=== PATIENT | female | born 1955 | race Caucasian/White ===

== ENCOUNTER → 2019-04-16 | Outpatient (CLI) | payer MEDICARE, MEDICAID ==
[2015-09-06 11:00] VITALS: BP 136/76
[~2019-04-16] MED LIST: SOLI10TA2 PO
--- NOTE | 2019-04-16 16:16 | KCIC ---
EXAM: Pelvic ultrasound. HISTORY: Postmenopausal bleeding. COMPARISON: None. FINDINGS: Sonographic evaluation of the pelvis was performed transabdominally. The patient declined transvaginal assessment. If they have not been resected, the uterus and ovaries are obscured by bowel gas and body habitus. No mass or clear free fluid is appreciated. IMPRESSION: 1. Limited assessment. The uterus and ovaries are obscured if they are not surgically absent. Recommend ongoing follow-up of postmenopausal bleeding. Electronically signed by: Sulma Johnson MD (04/16/2019 4:13 PM) [facility]
== END | disposition home or self-care (01) ==
LOC: KCIC US 14:41
PROVIDERS: ATTEND Family Medicine
DX: N95.0 Postmenopausal bleeding (principal)
CPT/HCPCS: 76857

== ENCOUNTER → 2019-09-22 | Outpatient (CLI) | payer MEDICARE, MEDICAID ==
[2015-09-06 11:00] VITALS: BP 136/76
[~2019-09-22] MED LIST changes: +DOXY100T PO; +FURO40TA4 PO; +IRBE150T21 PO; +OXYB10TA26 PO
--- NOTE | 2019-09-22 08:02 | RAD ---
Bilateral lower extremity arterial ultrasound History:Nonhealing bilateral lower extremity wounds Findings: Multiple grayscale, color, and duplex spectral analysis sonographic images were acquired of the lower extremity arteries bilaterally. There are no previous similar exams. Triphasic flow is seen at the common femoral arterial and proximal to mid femoral arterial levels. Triphasic flow is seen at other sites were flow is noted. Velocities in cm/sec: RIGHT Common femoral artery 169 Profunda femoris artery 165 Proximal SFA 189 Mid SFA 143 Distal SFA not visualized Popliteal artery 98 Anterior tibial artery not visualized Dorsalis pedis artery 55 Posterior tibial artery not visualized Peroneal artery not visualized LEFT: Common femoral artery 122 Profunda femoris artery 130 Proximal SFA 174 Mid SFA 172 Distal SFA not visualized Popliteal artery 80 Anterior tibial artery 111 Dorsalis pedis artery not visualized Posterior tibial artery not visualized Peroneal artery not visualized Impression: Flows not seen within bilateral distal lower extremity arteries at multiple sites of calf levels. Distal superficial femoral artery is not identified to have flow. Findings are concerning for occlusion at these sites. Electronically signed by: Guillaume Manzano MD (09/22/2019 7:59 AM) [id number]
== END | disposition home or self-care (01) ==
LOC: US 06:41
PROVIDERS: ATTEND Emergency Medicine Undersea and Hyperbaric Medicine
DX: S81.802A Unspecified open wound, left lower leg, initial encounter (principal); S81.801A Unspecified open wound, right lower leg, initial encounter; I70.213 Atherosclerosis of native arteries of extremities with intermittent claudication, bilateral legs; I87.2 Venous insufficiency (chronic) (peripheral); M17.10 Unilateral primary osteoarthritis, unspecified knee; I15.8 Other secondary hypertension; X58.XXXA Exposure to other specified factors, initial encounter; Y93.89 Activity, other specified; Y92.89 Other specified places as the place of occurrence of the external cause; Y99.8 Other external cause status
CPT/HCPCS: 93925

== ENCOUNTER 2019-10-05 08:27 | Outpatient (CLI) | payer MEDICARE, MEDICAID ==
[~2019-10-05] VITALS: Ht 167.6 cm; Wt 201.8 kg
[2019-10-05] VITALS (10 sets, daily range): BP systolic 104–148; BP diastolic 52–88
[2019-10-05 08:59] LABS: BASO # 0.1 x10^3/uL (0.0-0.2); BASO % 1 % (0-3); EOS # 0.2 x10^3/uL (0.0-0.7); EOS % 3 % (0-3); HEMATOCRIT 48.9 % (36.0-47.0); LYMPH # 1.3 x10^3/uL (1.0-4.8); LYMPH % 18 % (24-48); MEAN CORPUSCULAR HEMOGLOBIN 28 pg (25-35); MEAN CORPUSCULAR HGB CONC 33 g/dL (31-37); MEAN CORPUSCULAR VOLUME 85 fL (79-100); MONO # 0.5 x10^3/uL (0.0-1.1); MONO % 7 % (0-9); NEUT # 4.9 x10^3/uL (1.8-7.7); NEUT % 70 % (31-73); PLATELET COUNT 223 x10^3/uL (140-400); RED BLOOD COUNT 5.77 x10^6/uL (3.50-5.40); RED CELL DISTRIBUTION WIDTH 14.3 % (11.5-14.5)
[2019-10-05 09:06] LABS: CALCIUM 9.2 mg/dL (8.5-10.1); CREATININE 0.9 mg/dL (0.6-1.0); GFR 62.6; POTASSIUM 4.1 mmol/L (3.5-5.1)
[2019-10-05] MEDS ORDERED: IODIXANOL 320 MG/ML 100 ML VIAL. ONE ×2 (09:50→11:49)
[2019-10-05] MEDS ORDERED: LIDOCAINE WITH 8.4% SOD BICARB 3 ML DISP.SYRIN. ONE (09:50)
[2019-10-05] MEDS ORDERED: HEPARIN for ARTERIAL LINE 1,500 ML ONE (09:50)
[2019-10-05] MEDS ORDERED: MIDAZOLAM HCL/PF 5 MG/5 ML VIAL. ONE (10:05)
[2019-10-05] MEDS ORDERED: fentaNYL PF VIAL 100 MCG/2 ML VIAL ONE (10:05)
[2019-10-05] MEDS ORDERED: VERAPAMIL 5 MG/2 ML VIAL. ONE (10:11)
[2019-10-05] MEDS ORDERED: HEPARIN for IV BOLUS 10,000 UNIT/10 ML VIAL. ONE (10:11)
[2019-10-05] MEDS ORDERED: NITROGLYCERIN 200 MCG/2 ML SYRINGE FOR CATH/VASC LAB. ONE (10:11)
[2019-10-05] MEDS ORDERED: HEPARIN for IV BOLUS 10,000 UNIT/10 ML VIAL. IART ONE (11:00)
[2019-10-05] MEDS ORDERED: IODIXANOL 320 MG/ML 100 ML VIAL. IART ONE (11:00)
[2019-10-05] MEDS ORDERED: fentaNYL PF VIAL 100 MCG/2 ML VIAL IV ONE (11:00)
[2019-10-05] MEDS ORDERED: MIDAZOLAM HCL/PF 5 MG/5 ML VIAL. IV ONE (11:00)
[2019-10-05] MEDS ORDERED: VERAPAMIL 5 MG/2 ML VIAL. IART ONE (11:00)
[2019-10-05] MEDS ORDERED: LIDOCAINE WITH 8.4% SOD BICARB 3 ML DISP.SYRIN. IJ ONE (11:00)
[2019-10-05] MEDS ORDERED: NITROGLYCERIN 200 MCG/2 ML SYRINGE FOR CATH/VASC LAB. IART ONE (11:00)
[2019-10-05] MEDS ORDERED: IBUPROFEN 400 MG TABLET. PO PRN (12:45)
--- NOTE | 2019-10-05 14:42 | NUR ---
Discharge Note: ZI SIMON Discharge instructions and discharge home medications reviewed with Patient and a copy given. All questions have been answered and understanding verbalized. The following instructions and handouts were given: radial site care and adult moderate sedation Discontinued lines and drains: Peripheral IV intact. Patient discharged to Home or Self Care withFamily Membera Wheelchair
--- NOTE | 2019-10-05 16:31 | RAD ---
10/05/2019 1. Abdominal aortogram 2. Pelvic angiography 3. Bilateral lower extremity angiography INDICATION: Bilateral lower extremity wounds. Edema. Evaluate for arterial insufficiency Discussion: The procedure was explained in its entirety to the patient or the patients designated premium service representative by a member of the treatment team, including a discussion of the risks, benefits and commonly accepted alternatives to the procedure, as well as the expected consequences of no therapy whatsoever. Discussion of the risks included, but was not limited to, those that are most frequent and those that are rare but possibly severe or life-threatening, as well as the possibility of unforeseen complications. All elements of maximal sterile barrier technique including the use of a cap, mask, sterile gown, sterile gloves, large sterile sheet, appropriate hand hygiene, and 2% chlorhexidine for cutaneous antisepsis (or acceptable alternative antiseptic per current guidelines) were followed for this procedure. Barbeau test was performed prior to right radial access,, dizziness demonstrating adequate collateral flow to the pulmonary arch. The right wrist was prepped and draped using sterile barrier technique. 1% lidocaine was administered for local anesthesia. Ultrasound evaluation demonstrates right radial artery to be patent. The artery was accessed using micropuncture technique, under direct ultrasound guidance. Reference ultrasound images were saved the medical record. A 6 Georgian Low Profile sheath was placed. The catheter was advanced into the abdominal aorta. Abdominal aortogram was performed demonstrating no aneurysm, evidence of dissection, flow-limiting stenosis. Pelvic angiography was performed yielding similar results. Catheter was manipulated into the right common femoral artery. Right lower extremity angiography was performed demonstrating no femoropopliteal or significant tibial vessel disease. Catheter was positioned in the left common femoral artery and left lower extremity angiography performed again demonstrating no significant femoropopliteal or tibial vessel disease. Sheath was removed and the TR been placed per protocol. No immediate complications were identified. Total fluoroscopy time: 19.8 min Dose area product: 538 Gycm2 The procedures performed under conscious sedation including continuous cardiopulmonary monitoring via dedicated sedation nurse. [id number] sedation time: 90 minutes Impression: No angiographic evidence of hemodynamically significant aortoiliac, femoral popliteal, tibial vessel disease
== END 2019-10-05 14:44 | disposition home or self-care (01) ==
LOC: INTRAD 08:27
PROVIDERS: ATTEND Emergency Medicine Undersea and Hyperbaric Medicine
DX: I70.213 Atherosclerosis of native arteries of extremities with intermittent claudication, bilateral legs (principal); Z79.01 Long term (current) use of anticoagulants; Z79.899 Other long term (current) drug therapy
CPT/HCPCS: 36246; 36415; 75625; 75716; 76937; 80048; 85025; 85610; 85730; 99152; 99153; C1713; C1769; C1892; J1644; J2250; J3010; J3490; Q9967

== ENCOUNTER 2020-12-14 08:26 | Emergency (ER) | payer MEDICARE, MEDICAID ==
[~2020-12-14] VITALS: Ht 167.6 cm; Wt 181.8 kg
[2020-12-14 08:39] VITALS: BP 144/66
[2020-12-14] MEDS ORDERED: HYDROcodone/APAP 5/325MG 1 TAB TABLET PO ONE (09:30)
--- NOTE | 2020-12-14 10:33 | RAD ---
XR SHOULDER_LEFT 2+ VIEWS, XR LEFT CLAVICLE, XR CHEST 1V Clinical Indication: Reason: FELL, LEFT SIDE CHEST, SHOULDER PAIN / Spl. Instructions: / History: Comparison: AP chest September 28, 2019. Findings: Moderate arthropathy of the left shoulder. No acute fracture or dislocation is seen. No acute fracture of the clavicle is identified. There is sternoclavicular and acromioclavicular arth ropathy. There is a 11 mm well-corticated body superior to the acromion, may be a joint body. The cardiomediastinal silhouette is normal there are low lung volumes.. Cephalized pulmonary vessels. Bibasilar airspace opacities. There is no pneumothorax. No pleural effusion is appreciated. There is similar arthropathy of the right shoulder. Degenerative endplate spurring of the thoracic spine. IMPRESSION: 1. No acute fracture or dislocation of the shoulder or clavicle. 2. Low lung volumes. Bibasilar airspace opacities. Question mild pulmonary vascular congestion. Electronically signed by: Aftab Pickard MD (12/14/2020 10:31 AM) [id number]
--- NOTE | 2020-12-14 10:58 | PHYS DOC ---
Past Medical History Past Medical History: Hypertension Additional Past Medical Histor: morbid obesity, overactive bladder Past Surgical History: Cholecystectomy Smoking Status: Never Smoker Alcohol Use: None Drug Use: None General Adult EDM: Chief Complaint: SHOULDER INJURY HPI: HPI: Patient is a 65 year old female who present to ER for evaluation of left shoulder pain after she fell in her garden today. Patient said she was walking and tripped on her feet, fell down on her left shoulder hit the ground. Patient denies any head or neck injury, denies any back pain lower extremity pain. Patient denies any hip pain, no numbness or weakness in her left upper extr emity. Patient is complaining of pain in her left inner shoulder area, and left distal clavicle area. Patient is not on any blood thinner. Review of Systems: Review of Systems: Constitutional: Denies fever or chills. [] Eyes: Denies change in visual acuity. [] HENT: Denies nasal congestion or sore throat. [] Respiratory: Denies cough or shortness of breath. [] Cardiovascular: Denies chest pain or edema. [] GI: Denies abdominal pain, nausea, vomiting, bloody stools or diarrhea. [] : Denies dysuria. [] Musculoskeletal: Positive for left shoulder pain. Integument: Denies rash. Positive for left shoulder contusion. Neurologic: Denies any headache, no numbness Endocrine: Denies polyuria or polydipsia. [] Lymphatic: Denies swollen glands. [] Psychiatric: Denies depression or anxiety. [] Heart Score: C/O Chest Pain: N/A Risk Factors: Risk Factors: DM, Current or recent (<one month) smoker, HTN, HLP, family history of CAD, obesity. Risk Scores: Score 0 - 3: 2.5% MACE over next 6 weeks - Discharge Home Score 4 - 6: 20.3% MACE over next 6 weeks - Admit for Clinical Observation Score 7 - 10: 72.7% MACE over next 6 weeks - Early Invasive Strategies Current Medications: Current Medications Medications (Trade) Dose Ordered Sig/Esperanza Start Time Stop Time Status Last Admin Dose Admin Acetaminophen/ Hydrocodone Bitart (Lortab 5/325) 2 tab 1X ONCE 12/14/20 09:30 12/14/20 09:31 DC 12/14/20 09:33 2 TAB Allergies: Allergies: Allergies Coded Allergies Type Severity Reaction Last Updated Verified No Known Drug Allergies 12/14/20 No Physical Exam: PE: Constitutional: Well developed, well nourished, no acute distress, non-toxic appearance. [] HENT: Normocephalic, atraumatic, bilateral external ears normal, oropharynx moist, no oral exudates, nose normal. [] Eyes: PERRLA, EOMI, conjunctiva normal, no discharge. [] Neck: Normal range of motion, no tenderness, supple, no stridor. [] Cardiovascular:Heart rate regular rhythm, no murmur [] Lungs & Thorax: Bilateral breath sounds clear to auscultation [] Abdomen: Bowel sounds normal, soft, no tenderness, no masses, no pulsatile primo s. [] Skin: Warm, dry, no erythema, no rash. [] Back: No tenderness, no CVA tenderness. [] Extremities: Left shoulder tender to palpation at the AC joint area, no deformity noted, there is skin contusion at the left distal clavicle area, no crepitus. There is full range of motion of the left shoulder. Neurologic: Alert and oriented X 3, normal motor function, normal sensory function, no focal deficits noted. [] Psychologic: Affect normal, judgement normal, mood normal. [] Current Patient Data: Vital Signs: Vital Signs Date Time Temp Pulse Resp B/P (MAP) Pulse Ox O2 Delivery O2 Flow Rate FiO2 12/14/20 08:39 97.7 91 28 144/66 (79) 88 Room Air 97.7 EKG: EKG: [] Radiology/Procedures: Radiology/Procedures: [][facility] [address] [place], [place] [id number] IMAGING REPORT Signed PATIENT: ZI SIMON RACCOUNT: [id number] : 1955 LOCATION: ER AGE: 65 SEX: F EXAM STATUS: REG ER ORD. PHYSICIAN: NELLY SPENCER DO REASON: FELL, LEFT SIDE CHEST, SHOULDER PAIN PROCEDURE: CHEST AP ONLY XR SHOULDER_LEFT 2+ VIEWS, XR LEFT CLAVICLE, XR CHEST 1V Clinical Indication: Reason: FELL, LEFT SIDE CHEST, SHOULDER PAIN / Spl. Instructions: / History: Comparison: AP chest September 28, 2019. Findings: Moderate arthropathy of the left shoulder. No acute fracture or dislocation is seen. No acute fracture of the clavicle is identified. There is sternoclavicular and acromioclavicular arthropathy. There is a 11 mm well-corticated body superior to the acromion, may be a joint body. The cardiomediastinal silhouette is normal there are low lung volumes.. Cephalized pulmonary vessels. Bibasilar airspace opacities. There is no pneumothorax. No pleural effusion is appreciated. There is similar arthropathy of the right shoulder. Degenerative endplate spurring of the thoracic spine. IMPRESSION: 1. No acute fracture or dislocation of the shoulder or clavicle. 2. Low lung volumes. Bibasilar airspace opacities. Question mild pulmonary vascular congestion. Electronically signed by: Aftab Pickard MD (12/14/2020 10:31 AM) [id number] DICTATED and SIGNED BY: AFTAB PICKARD MD DATE: 12/14/20 [id number] 0 Course & Med Decision Making: Course & Med Decision Making Pertinent Labs and Imaging studies reviewed. (See chart for details) Patient is a 65-year-old female who present to ER due to left shoulder pain after she fell. X-ray did not show any acute fracture or dislocation. Patient was discharged home with pain medication. Dragon Disclaimer: Dragon Disclaimer: This electronic medical record was generated, in whole or in part, using a voice recognition dictation system. Departure Departure Impression: Primary Impression: Contusion of left shoulder, initial encounter Disposition: HOME / SELF CARE / HOMELESS Condition: STABLE Referrals: MICHELA HERNANDES MD (PCP) Follow-up with your doctor as needed Patient Instructions: Contusion Additional Instructions: Thank you for visiting our Emergency Department. We appreciate you trusting us with your care. If any additional problems come up don't hesitate to return to visit us. Please follow up with your primary care provider so they can plan additional care if needed and know about the problem that you had. If symptoms worsen come back to the Emergency Department. Any concerning symptoms that start such as chest pain, shortness of air, weakness or numbness on one side of the body, running high fevers or any other concerning symptoms return to the ER. Scripts Hydrocodone/Acetaminophen (Hydrocodone-Acetamin 5-325 mg) 1 Each Tablet 1 EACH PO Q6HRS PRN for PAIN, #12 TAB Prov: NELLY SPENCER DO 12/14/20 NELLY SPENCER DO Dec 14, 2020 10:58
[2020-12-14] MEDS ORDERED: HYDR-2759 PO (11:15)
== END 2020-12-14 11:26 | disposition home or self-care (01) ==
LOC: ER 08:26
DX: S40.012A Contusion of left shoulder, initial encounter (principal); R07.89 Other chest pain; I10 Essential (primary) hypertension; E66.01 Morbid (severe) obesity due to excess calories; Z68.44 Body mass index [BMI] 60.0-69.9, adult; W01.0XXA Fall on same level from slipping, tripping and stumbling without subsequent striking against object, initial encounter; Y92.89 Other specified places as the place of occurrence of the external cause; Y93.01 Activity, walking, marching and hiking; Y99.8 Other external cause status
CPT/HCPCS: 71045; 73000; 73030; 99284; A4565

== ENCOUNTER 2020-12-20 08:10 | Inpatient (IN) | payer MEDICARE, MEDICAID ==
[~2020-12-20] VITALS: Ht 167.6 cm; Wt 197.0 kg
[~2020-12-20 08:10] MED LIST changes: +HYDR-2759 PO
--- NOTE | 2020-12-20 08:38 | PHYS DOC ---
Past Medical History Past Medical History: Hypertension Additional Past Medical Histor: morbid obesity, overactive bladder Past Surgical History: Cholecystectomy Smoking Status: Never Smoker Alcohol Use: None Drug Use: None General Adult EDM: Chief Complaint: weakness/fatigue HPI: HPI: 65-year-old female presents the emergency department complaining of fatigue since she had a fall 6 days prior. She reports that she was evaluated in our emergency department and had imaging performed on her shoulder as well as other areas and had a work-up done and was discharged home. Since this time she reports that she has been more weak than usual, has not had a whole lot of ac tivity at home. She does take care of herself at home. She reports swelling in her legs. She has not taken her Lasix for the past 6 days because she states that it would require her to get up and use the restroom. She also complains of a sore on her buttock area. The patient denies nausea, vomiting, fever, chills, chest pain, shortness of breath, abdominal pain, urinary symptoms, cough, recent trauma other than 6 days ago, or any other complaints. Review of Systems: Review of Systems: Review of systems is otherwise negative except for what was mentioned in the HPI Heart Score: C/O Chest Pain: No Allergies: Allergies: Allergies Coded Allergies Type Severity Reaction Last Updated Verified No Known Drug Allergies 12/14/20 No Physical Exam: PE: Constitutional: Super obese female, laying in the bed in no acute distress, nontoxic appearance. At baseline it is difficult for her to move around the bed. HENT: Atraumatic, bilateral external ears normal, nose normal. Eyes: PERRLA, EOMI, conjunctiva normal, no discharge. Neck: Normal range of motion, supple, no stridor. Cardiovascular: Heart rate regular rhythm. 2+ radial pulses Lungs & Thorax: No respiratory distress, symmetrical expansion. Bilateral breath sounds clear to auscultation Abdomen: Soft, no tenderness Skin: Warm, dry. Patient rolled and wound that she complained that was examined. She has a small area of redness without induration or signs of infection that is minimally tender, and likely a developing bedsore Extremities: No tenderness, no cyanosis, ROM intact, chronic appearing 2+ edema. Neurologic: Alert and oriented X 3, normal motor function, normal sensory function, no focal deficits noted. Non ataxic gait. GCS 15. Psychologic: Affect normal, judgment normal, mood normal. Current Patient Data: Labs: Laboratory Tests Test 12/20/20 08:50 12/20/20 08:58 12/20/20 10:25 White Blood Count 10.0 x10^3/uL (4.0-11.0) Red Blood Count 4.50 x10^6/uL (3.50-5.40) Hemoglobin 12.6 g/dL (12.0-15.5) Hematocrit 38.3 % (36.0-47.0) Mean Corpuscular Volume 85 fL (79-100) Mean Corpuscular Hemoglobin 28 pg (25-35) Mean Corpuscular Hemoglobin Concent 33 g/dL (31-37) Red Cell Distribution Width 13.6 % (11.5-14.5) Platelet Count 259 x10^3/uL (140-400) Neutrophils (%) (Auto) 81 % (31-73) Lymphocytes (%) (Auto) 10 % (24-48) Monocytes (%) (Auto) 8 % (0-9) Eosinophils (%) (Auto) 1 % (0-3) Basophils (%) (Auto) 1 % (0-3) Neutrophils # (Auto) 8.1 x10^3/uL (1.8-7.7) Lymphocytes # (Auto) 1.0 x10^3/uL (1.0-4.8) Monocytes # (Auto) 0.7 x10^3/uL (0.0-1.1) Eosinophils # (Auto) 0.1 x10^3/uL (0.0-0.7) Basophils # (Auto) 0.1 x10^3/uL (0.0-0.2) Sodium Level 141 mmol/L (136-145) Potassium Level 4.0 mmol/L (3.5-5.1) Chloride Level 103 mmol/L (98-107) Carbon Dioxide Level 32 mmol/L (21-32) Anion Gap 6 (6-14) Blood Urea Nitrogen 18 mg/dL (7-20) Creatinine 0.8 mg/dL (0.6-1.0) Estimated GFR (Cockcroft-Gault) 71.5 BUN/Creatinine Ratio 23 (6-20) Glucose Level 120 mg/dL (70-99) Calcium Level 8.9 mg/dL (8.5-10.1) Total Bilirubin 1.0 mg/dL (0.2-1.0) Aspartate Amino Transf (AST/SGOT) 54 U/L (15-37) Alanine Aminotransferase (ALT/SGPT) 35 U/L (14-59) Alkaline Phosphatase 53 U/L (46-116) Creatine Kinase 1301 U/L (26-192) Troponin I Quantitative < 0.017 ng/mL (0.000-0.055) DW-Mvs-M-Type Natriuretic Peptide 78 pg/mL (0-124) Total Protein 6.2 g/dL (6.4-8.2) Albumin 3.0 g/dL (3.4-5.0) Albumin/Globulin Ratio 0.9 (1.0-1.7) Thyroid Stimulating Hormone (TSH) 1.929 uIU/mL (0.358-3.74) Glucose (Fingerstick) 120 mg/dL (70-99) Urine Collection Type Unknown Urine Color Pushpa Urine Clarity Clear Urine pH 5.5 (<5.0-8.0) Urine Specific [place] >=1.030 (1.000-1.030) Urine Protein Negative mg/dL (NEG-TRACE) Urine Glucose (UA) Negative mg/dL (NEG) Urine Ketones (Stick) 15 mg/dL (NEG) Urine Blood Trace (NEG) Urine Nitrite Positive (NEG) Urine Bilirubin Negative (NEG) Urine Urobilinogen Dipstick 1.0 mg/dL (0.2 mg/dL) Urine Leukocyte Esterase Small (NEG) Urine RBC 0 /HPF (0-2) Urine WBC 20-40 /HPF (0-4) Urine Squamous Epithelial Cells Few /LPF Urine Bacteria Many /HPF (0-FEW) Urine Hyaline Casts Few /HPF Urine Mucus Mod /LPF Vital Signs: Vital Signs Date Time Temp Pulse Resp B/P (MAP) Pulse Ox O2 Delivery O2 Flow Rate FiO2 12/20/20 08:41 98.3 96 26 114/51 93 Nasal Cannula 2.0 98.3 EKG: EK: Normal sinus rhythm rate of 95, no ST-T wave changes, no ectopic beats, n ormal axis, normal CA, QRS, and QTc intervals. Impression: Normal EKG. interpreted by me, Zuri Wiggins D.O. Radiology/Procedures: Radiology/Procedures: XR CHEST 1V CLINICAL INDICATIONS: Fatigue Comparison: December 14, 2020. Findings: Severe elevation of the right hemidiaphragm extending to the right hilum is again evident. There is associated right lung base atelectasis. Mild bilateral perihilar pulmonary edema is seen which has increased since the prior study. There is persistent lateral left midlung zone infiltrate which is unchanged. This is underneath fractures of the lateral aspect of the fourth and fifth and sixth ribs and therefore could represent lung contusion. In addition, there is a fracture of the posterior left third rib. There is a small left sided pleural effusion or hemothorax still present. No pneumothorax is evident. The heart size, pulmonary vasculature, mediastinum and both manuel are stable. IMPRESSION: Since the prior study, there is an increase in bilateral perihilar pulmonary edema. Electronically signed by: Alfredo Goldman MD (12/20/2020 9:46 AM) EXAM: Left shoulder, 3 views. HISTORY: Pain. COMPARISON: None. FINDINGS: 3 views of the left shoulder obtained. There is mild acromioclavicular and glenohumeral joint spurring. There is decreased subacromial space likely due to chronic rotator cuff pathology. There are displaced lateral left rib fractures, not formally assessed on this exam. There is a prominent cardiac silhouette and diffuse central predominant interstitial opacity involving both lungs. There is elevation of the right hemidiaphragm. IMPRESSION: 1. Mild acromioclavicular and glenohumeral joint osteoarthritis and suspected chronic rotator cuff pathology. 2. Displaced lateral left rib fractures. This can be better assessed with dedicated rib radiographs. 3. Diffuse central predominant interstitial opacity likely due to congestion. This can be better assessed with a dedicated chest radiograph. Electronically signed by: Magdalean Gentile MD (12/20/2020 12:18 PM) CT [facility] WO History: Left-sided rib fracture. Technique: Noncontrast CT of the chest was performed. Coronal and sagittal reconstructions were performed. Exposure: One or more of the following individualized dose reduction techniques were utilized for this examination: 1. Automated exposure control 2. Adjustment of the mA and/or kV according to patient size 3. Use of iterative reconstruction technique. Comparison: Radiographs December 20, 2020 Findings: Chest: Heterogeneous enlarged left thyroid gland with multiple nodules. Enlarged pulmonary artery measures 4.3 cm. Mild atheromatous plaque within the aorta. Multifocal linear atelectasis bilaterally. Elevation the right hemidiaphragm with adjacent atelectasis. Small left pleural effusion with potential increased density of the evaluation is degraded due to artifact. No pneumothorax. Upper abdomen: Prior cholecystectomy. Degraded evaluation due to patient body habitus and technique. Bones: Acute left anterior second rib fracture. Acute left lateral third, fourth, fifth, and sixth rib fracture. Multilevel thoracic spondylosis. Impression: 1. Multiple acute left-sided rib fractures. 2. Small left pleural effusion, may represent hemothorax. 3. Multifocal linear atelectasis bilaterally. 4. Enlarged pulmonary arteries, may indicate pulmonary artery hypertension. 5. Multinodular thyroid. Recommend ultrasound to further evaluate. Electronically signed by: Berny Mariee DO (12/20/2020 1:42 PM) [facility] Course & Med Decision Making: Course & Med Decision Making Upon exam, the patient functionally was unable to walk short distances, limiting her ability to care for herself at home. Patient was last seen in the emergency department 6 days ago and was seen for a fall down several steps of stairs. She had plain films done but did not show any rib fractures. On today's exam, there was rib fractures that were seen on plain film. A CT of the chest was ordered to further delineate the rib fractures. On CT of the chest, the patient had left-sided rib fractures from ribs 2 through 6 along with a small pleural effusion but could possibly represent a hemothorax. Patient vital signs are stable and she is on her home amount of oxygen (NC 2 L). General surgery Dr. Fernandez was consulted and patient was admitted to the hospital under her PCP Dr. Davis Departure Departure Impression: Primary Impression: Multiple fractures of ribs of left side Additional Impression: Hemothorax on left Disposition: 09 ADMITTED INPATIENT Admitting Physician: Michela Davis Condition: STABLE Referrals: MICHELA DAVIS MD (PCP) ZURI WIGGINS DO Dec 20, 2020 08:38
[2020-12-20] MEDS ORDERED: IV NORMAL SALINE 1000ML BAG 1,000 ML IV SCH (09:00)
[2020-12-20 09:05] LABS: BASO # 0.1 x10^3/uL (0.0-0.2); BASO % 1 % (0-3); EOS # 0.1 x10^3/uL (0.0-0.7); EOS % 1 % (0-3); HEMATOCRIT 38.3 % (36.0-47.0); HEMOGLOBIN 12.6 g/dL (12.0-15.5); LYMPH % 10 % (24-48); MEAN CORPUSCULAR HEMOGLOBIN 28 pg (25-35); MEAN CORPUSCULAR HGB CONC 33 g/dL (31-37); MEAN CORPUSCULAR VOLUME 85 fL (79-100); MONO # 0.7 x10^3/uL (0.0-1.1); MONO % 8 % (0-9); NEUT # 8.1 x10^3/uL (1.8-7.7); NEUT % 81 % (31-73); PLATELET COUNT 259 x10^3/uL (140-400); RED CELL DISTRIBUTION WIDTH 13.6 % (11.5-14.5)
[2020-12-20 09:10] LABS: CALCIUM 8.9 mg/dL (8.5-10.1); CREATININE 0.8 mg/dL (0.6-1.0); GFR 71.5
[2020-12-20] MEDS ORDERED: IV NORMAL SALINE 1000ML BAG 1,000 ML IV ONE (09:15)
[2020-12-20 09:24] LABS: ALBUMIN/GLOBULIN RATIO 0.9 (1.0-1.7); TOTAL PROTEIN 6.2 g/dL (6.4-8.2)
--- NOTE | 2020-12-20 09:48 | RAD ---
XR CHEST 1V CLINICAL INDICATIONS: Fatigue Comparison: December 14, 2020. Findings: Severe elevation of the right hemidiaphragm extending to the right hilum is again evident. There is associated right lung base atelectasis. Mild bilateral perihilar pulmonary edema is seen whi ch has increased since the prior study. There is persistent lateral left midlung zone infiltrate whic h is unchanged. This is underneath fractures of the lateral aspect of the fourth and fifth and sixth ribs and therefore could represent lung contusion. In addition, there is a fracture of the posterior left third rib. There is a small left sided pleural effusion or hemothorax still present. No pneumoth orax is evident. The heart size, pulmonary vasculature, mediastinum and both manuel are stable. IMPRESSION: Since the prior study, there is an increase in bilateral perihilar pulmonary edema. Electronically signed by: Alfredo Goldman MD (12/20/2020 9:46 AM) [id number]
[2020-12-20 10:35] LABS: BILIRUBIN,URINE NEGATIVE (NEG); CLARITY,URINE CLEAR; COLOR,URINE AMBER; NITRITE,URINE POSITIVE (NEG); PH,URINE 5.5 (<5.0-8.0); PROTEIN,URINE NEGATIVE (NEG-TRACE)
[2020-12-20 10:48] LABS: BACTERIA,URINE MANY /HPF (0-FEW); HYALINE CASTS, URINE FEW /HPF; RBC,URINE 0 /HPF (0-2); WBC,URINE 20-40 /HPF (0-4)
[2020-12-20] MEDS ORDERED: cefTRIAXone IV Push 1 GM VIAL. IVP ONE (11:00)
--- NOTE | 2020-12-20 12:20 | RAD ---
EXAM: Left shoulder, 3 views. HISTORY: Pain. COMPARISON: None. FINDINGS: 3 views of the left shoulder obtained. There is mild acromioclavicular and glenohumeral hilton nt spurring. There is decreased subacromial space likely due to chronic rotator cuff pathology. There are displaced lateral left rib fractures, not formally assessed on this exam. There is a prominent c ardiac silhouette and diffuse central predominant interstitial opacity involving both lungs. There is elevation of the right hemidiaphragm. IMPRESSION: 1. Mild acromioclavicular and glenohumeral joint osteoarthritis and suspected chronic rotator cuff pa thology. 2. Displaced lateral left rib fractures. This can be better assessed with dedicated rib radiographs. 3. Diffuse central predominant interstitial opacity likely due to congestion. This can be better asse ssed with a dedicated chest radiograph. Electronically signed by: Magdalena Gentile MD (12/20/2020 12:18 PM) [id number]
--- NOTE | 2020-12-20 13:45 | RAD ---
CT THORAX WO History: Left-sided rib fracture. Technique: Noncontrast CT of the chest was performed. Coronal and sagittal reconstructions were perfo rmed. Exposure: One or more of the following individualized dose reduction techniques were utilized for thi s examination: 1. Automated exposure control 2. Adjustment of the mA and/or kV according to patient size 3. Use of iterative reconstruction technique. Comparison: Radiographs December 20, 2020 Findings: Chest: Heterogeneous enlarged left thyroid gland with multiple nodules. Enlarged pulmonary artery chirag sures 4.3 cm. Mild atheromatous plaque within the aorta. Multifocal linear atelectasis bilaterally. Elevation the right hemidiaphragm with adjacent atelectasi s. Small left pleural effusion with potential increased density of the evaluation is degraded due to artifact. No pneumothorax. Upper abdomen: Prior cholecystectomy. Degraded evaluation due to patient body habitus and technique. Bones: Acute left anterior second rib fracture. Acute left lateral third, fourth, fifth, and sixth ri b fracture. Multilevel thoracic spondylosis. Impression: 1. Multiple acute left-sided rib fractures. 2. Small left pleural effusion, may represent hemothorax. 3. Multifocal linear atelectasis bilaterally. 4. Enlarged pulmonary arteries, may indicate pulmonary artery hypertension. 5. Multinodular thyroid. Recommend ultrasound to further evaluate. Electronically signed by: Berny Mariee DO (12/20/2020 1:42 PM) [facility]
[2020-12-20] MEDS ORDERED: ONDANSETRON PF 4 MG/2 ML VIAL. IVP PRN (14:15)
[2020-12-20] MEDS ORDERED: ACETAMINOPHEN 325 MG TABLET. PO PRN (14:15)
--- NOTE | 2020-12-20 14:30 | NUR ---
SW consult for potential SNU vs HH placement. Spoke with pt at bedside in ER. Answered pt's questions regarding the differences and requirements of SNU vs. HH services. Pt recently discharged home with [facility] and after discussion regarding SNU pt decided it best she just dc back home with resumption of HH services and ask family to assist as needed. Orders for HH received and faxed to [facility]. [facility] confirmed they are able to accept pt back on services.
--- NOTE | 2020-12-20 18:53 | PDOC2 ---
CONSULT Date of Consult Date of Consult DATE: 12/20/20 TIME: 18:46 Reason for Consult Reason for Consult: s/p fall, multiple rib fractures Referring Physician Referring Physician: Dr. Davis Identification/Chief Complaint Chief Complaint left shoulder, left chest pain Source Source: Chart review, Patient History of Present Illness Reason for Visit: 65 yo F s/p fall 6 days ago. Evaluated at that time, but has had increased fatigue. Pt seen in ER with c/o left shoulder pain and left chest pain. Denies abd pain. Past Medical History Cardiovascular: Other Pulmonary: Bronchitis GI: No pertinent hx Heme/Onc: No pertinent hx Hepatobiliary: No pertinent hx Psych: No pertinent hx Renal/: Other Endocrine: Other Past Surgical History Past Surgical History: Other Family History Family History: Hypertension Social History ALCOHOL: none Drugs: None Lives: Alone Current Problem List Problem List Problems Medical Problems: (1) Hemothorax on left Status: Acute (2) Multiple fractures of ribs of left side Status: Acute Current Medications Current Medications Current Medications Sodium Chloride 1,000 ml @ 1,000 mls/hr Q1H IV ; Start 12/20/20 at 09:00; Stop 12/20/20 at 09:59; Status Cancel Sodium Chloride 1,000 ml @ 1,000 mls/hr 1X ONCE IV Last administered on 12/20/20at 09:11; Start 12/20/20 at 09:15; Stop 12/20/20 at 10:14; Status DC Ceftriaxone Sodium (Rocephin) 1 gm 1X ONCE IVP Last administered on 12/20/20at 11:17; Start 12/20/20 at 11:00; Stop 12/20/20 at 11:01; Status DC Ondansetron HCl (Zofran) 4 mg PRN Q8HRS PRN IVP NAUSEA/VOMITING; Start 12/20/20 at 14:15; Stop 12/21/20 at 14:14 Morphine Sulfate (Morphine Sulfate) 4 mg PRN Q2HR PRN IVP PAIN; Start 12/20/20 at 14:15; Stop 12/21/20 at 14:14 Acetaminophen (Tylenol) 650 mg PRN Q4HRS PRN PO FEVER > 100.3'F; Start 12/20/20 at 14:15; Stop 12/21/20 at 14:14 Active Scripts Active Hydrocodone-Acetamin 5-325 mg (Hydrocodone/Acetaminophen) 1 Each Tablet 1 Each PO Q6HRS PRN Furosemide 40 Mg Tablet 40 Mg PO [id number] 30 Days Doxycycline Hyclate 100 Mg Tablet 100 Mg PO BID 10 Days Reported Irbesartan 150 Mg Tablet 150 Mg PO DAILY Oxybutynin Chloride Er (Oxybutynin Chloride) 10 Mg Tab.er.24 10 Mg PO DAILY Allergies Allergies: Coded Allergies: No Known Drug Allergies (Unverified , 12/14/20) ROS General: YES: Fatigue Respiratory: YES: Pleuritic Pain Physical Exam General: Alert, Oriented X3, Cooperative, No acute distress HEENT: Atraumatic Lungs: Normal air movement Abdomen: Soft, No tenderness Extremities: Other (left shoulder ecchymosis) Psych/Mental Status: Mental status NL, Mood NL Vitals VITALS Vital Signs Date Time Temp Pulse Resp B/P (MAP) Pulse Ox O2 Delivery O2 Flow Rate FiO2 12/20/20 13:38 76 20 129/58 (81) 100 Nasal Cannula 2.0 12/20/20 08:41 98.3 98.3 Labs Labs Laboratory Tests Test 12/20/20 08:50 12/20/20 08:58 12/20/20 10:25 White Blood Count 10.0 x10^3/uL (4.0-11.0) Red Blood Count 4.50 x10^6/uL (3.50-5.40) Hemoglobin 12.6 g/dL (12.0-15.5) Hematocrit 38.3 % (36.0-47.0) Mean Corpuscular Volume 85 fL (79-100) Mean Corpuscular Hemoglobin 28 pg (25-35) Mean Corpuscular Hemoglobin Concent 33 g/dL (31-37) Red Cell Distribution Width 13.6 % (11.5-14.5) Platelet Count 259 x10^3/uL (140-400) Neutrophils (%) (Auto) 81 % (31-73) Lymphocytes (%) (Auto) 10 % (24-48) Monocytes (%) (Auto) 8 % (0-9) Eosinophils (%) (Auto) 1 % (0-3) Basophils (%) (Auto) 1 % (0-3) Neutrophils # (Auto) 8.1 x10^3/uL (1.8-7.7) Lymphocytes # (Auto) 1.0 x10^3/uL (1.0-4.8) Monocytes # (Auto) 0.7 x10^3/uL (0.0-1.1) Eosinophils # (Auto) 0.1 x10^3/uL (0.0-0.7) Basophils # (Auto) 0.1 x10^3/uL (0.0-0.2) Sodium Level 141 mmol/L (136-145) Potassium Level 4.0 mmol/L (3.5-5.1) Chloride Level 103 mmol/L (98-107) Carbon Dioxide Level 32 mmol/L (21-32) Anion Gap 6 (6-14) Blood Urea Nitrogen 18 mg/dL (7-20) Creatinine 0.8 mg/dL (0.6-1.0) Estimated GFR (Cockcroft-Gault) 71.5 BUN/Creatinine Ratio 23 (6-20) Glucose Level 120 mg/dL (70-99) Calcium Level 8.9 mg/dL (8.5-10.1) Total Bilirubin 1.0 mg/dL (0.2-1.0) Aspartate Amino Transf (AST/SGOT) 54 U/L (15-37) Alanine Aminotransferase (ALT/SGPT) 35 U/L (14-59) Alkaline Phosphatase 53 U/L (46-116) Creatine Kinase 1301 U/L (26-192) Troponin I Quantitative < 0.017 ng/mL (0.000-0.055) XR-Pjw-U-Type Natriuretic Peptide 78 pg/mL (0-124) Total Protein 6.2 g/dL (6.4-8.2) Albumin 3.0 g/dL (3.4-5.0) Albumin/Globulin Ratio 0.9 (1.0-1.7) Thyroid Stimulating Hormone (TSH) 1.929 uIU/mL (0.358-3.74) Glucose (Fingerstick) 120 mg/dL (70-99) Urine Collection Type Unknown Urine Color Pushpa Urine Clarity Clear Urine pH 5.5 (<5.0-8.0) Urine Specific [place] >=1.030 (1.000-1.030) Urine Protein Negative mg/dL (NEG-TRACE) Urine Glucose (UA) Negative mg/dL (NEG) Urine Ketones (Stick) 15 mg/dL (NEG) Urine Blood Trace (NEG) Urine Nitrite Positive (NEG) Urine Bilirubin Negative (NEG) Urine Urobilinogen Dipstick 1.0 mg/dL (0.2 mg/dL) Urine Leukocyte Esterase Small (NEG) Urine RBC 0 /HPF (0-2) Urine WBC 20-40 /HPF (0-4) Urine Squamous Epithelial Cells Few /LPF Urine Bacteria Many /HPF (0-FEW) Urine Hyaline Casts Few /HPF Urine Mucus Mod /LPF Laboratory Tests Test 12/20/20 08:50 12/20/20 08:58 12/20/20 10:25 White Blood Count 10.0 x10^3/uL (4.0-11.0) Red Blood Count 4.50 x10^6/uL (3.50-5.40) Hemoglobin 12.6 g/dL (12.0-15.5) Hematocrit 38.3 % (36.0-47.0) Mean Corpuscular Volume 85 fL (79-100) Mean Corpuscular Hemoglobin 28 pg (25-35) Mean Corpuscular Hemoglobin Concent 33 g/dL (31-37) Red Cell Distribution Width 13.6 % (11.5-14.5) Platelet Count 259 x10^3/uL (140-400) Neutrophils (%) (Auto) 81 % (31-73) Lymphocytes (%) (Auto) 10 % (24-48) Monocytes (%) (Auto) 8 % (0-9) Eosinophils (%) (Auto) 1 % (0-3) Basophils (%) (Auto) 1 % (0-3) Neutrophils # (Auto) 8.1 x10^3/uL (1.8-7.7) Lymphocytes # (Auto) 1.0 x10^3/uL (1.0-4.8) Monocytes # (Auto) 0.7 x10^3/uL (0.0-1.1) Eosinophils # (Auto) 0.1 x10^3/uL (0.0-0.7) Basophils # (Auto) 0.1 x10^3/uL (0.0-0.2) Sodium Level 141 mmol/L (136-145) Potassium Level 4.0 mmol/L (3.5-5.1) Chloride Level 103 mmol/L (98-107) Carbon Dioxide Level 32 mmol/L (21-32) Anion Gap 6 (6-14) Blood Urea Nitrogen 18 mg/dL (7-20) Creatinine 0.8 mg/dL (0.6-1.0) Estimated GFR (Cockcroft-Gault) 71.5 BUN/Creatinine Ratio 23 (6-20) Glucose Level 120 mg/dL (70-99) Calcium Level 8.9 mg/dL (8.5-10.1) Total Bilirubin 1.0 mg/dL (0.2-1.0) Aspartate Amino Transf (AST/SGOT) 54 U/L (15-37) Alanine Aminotransferase (ALT/SGPT) 35 U/L (14-59) Alkaline Phosphatase 53 U/L (46-116) Creatine Kinase 1301 U/L (26-192) Troponin I Quantitative < 0.017 ng/mL (0.000-0.055) IV-Foj-U-Type Natriuretic Peptide 78 pg/mL (0-124) Total Protein 6.2 g/dL (6.4-8.2) Albumin 3.0 g/dL (3.4-5.0) Albumin/Globulin Ratio 0.9 (1.0-1.7) Thyroid Stimulating Hormone (TSH) 1.929 uIU/mL (0.358-3.74) Glucose (Fingerstick) 120 mg/dL (70-99) Urine Collection Type Unknown Urine Color Pushpa Urine Clarity Clear Urine pH 5.5 (<5.0-8.0) Urine Specific [place] >=1.030 (1.000-1.030) Urine Protein Negative mg/dL (NEG-TRACE) Urine Glucose (UA) Negative mg/dL (NEG) Urine Ketones (Stick) 15 mg/dL (NEG) Urine Blood Trace (NEG) Urine Nitrite Positive (NEG) Urine Bilirubin Negative (NEG) Urine Urobilinogen Dipstick 1.0 mg/dL (0.2 mg/dL) Urine Leukocyte Esterase Small (NEG) Urine RBC 0 /HPF (0-2) Urine WBC 20-40 /HPF (0-4) Urine Squamous Epithelial Cells Few /LPF Urine Bacteria Many /HPF (0-FEW) Urine Hyaline Casts Few /HPF Urine Mucus Mod /LPF Images Images rib fractures, shoulder separation, concern for pulm HTN Assessment/Plan Assessment/Plan Rib fractures agree with supportive care, pulm toilet pain control favor orth and pulm consult Thanks for consult! ZAKIA GOMEZ MD Dec 20, 2020 18:52
--- NOTE | 2020-12-20 19:48 | NUR ---
The patient, ZI SIMON, 65 y/o, F admitted by MICHELA HERNANDES MD, was given written information regarding hospital policies, unit procedures and contact persons. Valuables were checked and left with her.
[2020-12-20 19:49] VITALS: BP 139/72
[2020-12-20] MEDS: MORPHINE SULFATE 4 MG/ML INJ. IVP PRN (20:36)
[2020-12-20 23:00] VITALS: BP 141/72
[2020-12-21 03:00] VITALS: BP 132/67
[2020-12-21] MEDS: MORPHINE SULFATE 4 MG/ML INJ. IVP PRN (03:15)
[2020-12-21 04:44] LABS: BASO % 1 % (0-3); EOS # 0.3 x10^3/uL (0.0-0.7); EOS % 3 % (0-3); HEMATOCRIT 40.2 % (36.0-47.0); LYMPH # 1.2 x10^3/uL (1.0-4.8); LYMPH % 13 % (24-48); MEAN CORPUSCULAR HEMOGLOBIN 28 pg (25-35); MEAN CORPUSCULAR HGB CONC 32 g/dL (31-37); MEAN CORPUSCULAR VOLUME 88 fL (79-100); MONO # 0.8 x10^3/uL (0.0-1.1); MONO % 9 % (0-9); NEUT # 6.7 x10^3/uL (1.8-7.7); NEUT % 74 % (31-73); PLATELET COUNT 230 x10^3/uL (140-400); RED BLOOD COUNT 4.58 x10^6/uL (3.50-5.40); WHITE BLOOD COUNT 9.1 x10^3/uL (4.0-11.0)
[2020-12-21 05:05] LABS: CALCIUM 8.6 mg/dL (8.5-10.1); CREATININE 0.7 mg/dL (0.6-1.0); GFR 83.5; POTASSIUM 4.6 mmol/L (3.5-5.1)
[2020-12-21 07:30] VITALS: BP 113/62
--- NOTE | 2020-12-21 10:20 | NUR ---
SW following. Discussed with RN, pt from home with [employer] [facility], 2L (has oxygen at home), regular diet. No surgical plans at this time. RN advised no other SW needs. SW will continue to follow.
[2020-12-21 10:47] VITALS: BP 112/55
--- NOTE | 2020-12-21 11:02 | CONS ---
DATE OF CONSULTATION: 12/21/2020 ATTENDING PHYSICIAN: Dr. Davis. REASON FOR CONSULTATION: Rib fracture. HISTORY OF PRESENT ILLNESS: The patient is a 65-year-old morbidly obese female with a BMI of 70. She is a nonsmoker. She fell about a week prior to her visit. The patient complained of swelling in her left shoulder and also some left chest wall pain. The patient was brought into the hospital for further evaluation. I reviewed the patient's imaging studies and the CT chest showed multiple nondisplaced rib fractures including left 2nd, 3rd, 4th, 5th and 6th rib fractures. There is a very tiny left pleural effusion, which may represent hemothorax. There is evidence of pulmonary hypertension and goiter. The patient is complaining of pain in her left shoulder. Otherwise, no increased shortness of breath. She is a nonsmoker. No history of asthma. She said she has a history of sleep apnea. She could not tolerate CPAP. PAST MEDICAL HISTORY: Hypertension, morbid obesity and obstructive sleep apnea, intolerance to CPAP. PAST SURGICAL HISTORY: Cholecystectomy. SOCIAL HISTORY: Nonsmoker. ALLERGIES: None. MEDICATIONS: Reviewed as listed in the MRAD. REVIEW OF SYSTEMS: A 12-point systems obtained. Pertinent positives discussed in my present illness, otherwise noncontributory. All systems that were negative were reviewed as well. PHYSICAL EXAMINATION: VITAL SIGNS: Reviewed. Pulse ox 95% on 2 liters. NECK: Supple. LUNGS: With swelling in the left anterior shoulder with some bruises and ecchymosis. Lungs are otherwise clear. CARDIOVASCULAR: With a regular rate. ABDOMEN: Soft, obese. EXTREMITIES: With no pitting edema. LABORATORY DATA: Reviewed. White cell count 9.1, hemoglobin 13.0, platelets are 230. BUN 13, creatinine 0.7. IMPRESSION: 1. Status post fall with multiple left-sided rib fractures including left 2nd, 3rd, 4th, 5th and 6th rib fractures. No pneumothorax seen. 2. Tiny pleural effusion on the left, likely tiny hemothorax. Not clinically significant. 3. Likely hematoma in the anterior left shoulder with significant swelling. Recommend ultrasound and orthopedic followup. 4. History of clinically suspected pulmonary hypertension from underlying suspected sleep apnea/obesity hypoventilation syndrome. She is intolerant to CPAP. RECOMMENDATIONS: 1. Continue present oxygen, keep saturation 92 and above. 2. No intervention required from a pulmonary standpoint. 3. We will recommend followup chest x-ray in next 24 hours. 4. Pain control. 5. Add incentive spirometry/pulmonary toilet. 6. Obtain ultrasound of the left anterior chest to assess for hematoma and orthopedic consultation. 7. Pain control per PCP. 8. Discussed with RN and we will be available for further recommendations. LELSIE/JACOB/HANNAH DR: LESLIE/ghanshyam TID: [id number]
[2020-12-21] MEDS: OXYBUTYNIN CHLORIDE 5 MG TABLET PO SCH ×2 (11:30→21:00)
[2020-12-21] MEDS: LOSARTAN POTASSIUM 50 MG TABLET. PO SCH (11:30)
[2020-12-21] MEDS: FUROSEMIDE 40 MG TABLET. PO SCH ×2 (11:30→16:25)
[2020-12-21] MEDS: HYDROcodone/APAP 10/325 1 TAB TABLET PO PRN (11:32)
[2020-12-21] MEDS: IPRATRPIUM/ALBUTEROL 0.5/2.5MG 3 ML NEBU. NEB SCH ×3 (11:52→20:34)
--- NOTE | 2020-12-21 13:33 | RAD ---
US EXT NON VASC LEFT History:Reason: Left shoulder possible hematoma scan at swelling / Spl. Instructions: / History: Comparison: None Technique: Sonographic examination of the left anterior shoulder soft tissues Findings: Heterogeneous septated fluid collection within the left anterior shoulder subcutaneous tissues measur es approximately 5.6 x 2.4 cm. No significant Doppler flow. Impression: 1. Heterogeneous septated fluid collection within the left anterior shoulder subcutaneous tissues, m ost likely hematoma. If persistent clinical concern, recommend follow-up. Electronically signed by: Berny Mariee DO (12/21/2020 1:30 PM) [facility]
[2020-12-21 14:44] VITALS: BP 99/56
[2020-12-21 19:00] VITALS: BP 100/51
--- NOTE | 2020-12-21 20:44 | HP ---
ADMIT DATE: 12/21/2020 SUBJECTIVE: This 65-year-old morbidly obese female had a fall a week or so prior to admission. She was seen in the emergency room with negative x-rays at that point in time and was sent home. She has been more weak than usual, troubles , troubles with breathing, as far as hurting when she would breathe or try to transfer. She is going where she is unable to basically take care of herself. 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 She has held her Lasix for some time here because it is too hard to get up and use the bathroom. She was found to have multiple rib fractures, being very unsafe with transfers or moving and was admitted for the same. PAST MEDICAL HISTORY: Remarkable for hypertension, lower extremity cellulitis, morbid obesity, overactive bladder. PAST SURGICAL HISTORY: Remarkable for cholecystectomy. SOCIAL HISTORY: She is a lifetime nonsmoker, nondrinker, does not use drugs, is single. FAMILY HISTORY: Noncontributory. MEDICATIONS: Brought with the patient, listed on the computer and have been addressed. ALLERGIES: She has no known drug allergies. REVIEW OF SYSTEMS: As mentioned above. PHYSICAL EXAMINATION: GENERAL: She is well-developed, well-nourished, obese female lying in bed with pain with attempting to change positions in bed, but comfortable at rest. VITAL SIGNS: Stable. She is afebrile. HEAD, EYES, EARS, NOSE AND THROAT: Unremarkable. NECK: Supple without adenopathy or thyromegaly. CHEST: Clear to auscultation and percussion, but distant breath sounds. HEART: Regular rate and rhythm without S3, S4 or murmur. ABDOMEN: Soft, nontender without hepatosplenomegaly or masses. EXTREMITIES: Without cyanosis, clubbing. She does have 2+ edema. NEUROLOGIC: She is intact. LABORATORY DATA: Initial laboratory is remarkable for CBC that is unremarkable. Chem panel other than glucose of 120 and CPK of 1301 is essentially unremarkable. Albumin is slightly low at 3. Urine shows 20-40 white cells with small leukocyte esterase. Urine culture is pending. IMAGING: Included chest x-ray showing a probable increase in bilateral perihilar pulmonary edema since the prior chest x-ray. Shoulder x-ray shows mild acromioclavicular and glenohumeral joint arthritis, suspected chronic rotator cuff pathology. She has displaced left rib fractures and diffuse central predominant interstitial opacity, likely due to congestion. Chest CT shows multiple acute left-sided rib fractures, small left pleural effusion, which may represent hemothorax, multifocal linear atelectasis bilaterally, enlarged pulmonary arteries may indicate pulmonary artery hypertension, multinodular thyroid. Her ultrasound of the left shoulder area reveals hematoma, which clinically she has a huge like softball sized hematoma in her right upper anterior chest wall. IMPRESSION: 1. Fall with multiple rib fractures, weakness and inability to do self care. 2. Small left pleural effusion, likely hemothorax. ADDITIONAL DIAGNOSES: Morbid obesity, chronic osteoarthritic knee pain. PLAN: Admission, consult Pulmonary. She has high risk of pulmonary complications with her obesity and multiple rib fractures. Supportive care will be provided and therapy will be started. MARCO/RUSSELL DR: Annmarie TID: [id number]
[2020-12-21 23:30] VITALS: BP 98/48
[2020-12-22 02:59] VITALS: BP 122/69
[2020-12-22] MEDS: IPRATRPIUM/ALBUTEROL 0.5/2.5MG 3 ML NEBU. NEB SCH ×4 (06:16→20:35)
[2020-12-22 07:38] VITALS: BP 100/51
[2020-12-22] MEDS: FUROSEMIDE 40 MG TABLET. PO SCH ×2 (08:47→14:40)
[2020-12-22] MEDS: OXYBUTYNIN CHLORIDE 5 MG TABLET PO SCH ×2 (08:47→21:00)
[2020-12-22] MEDS: LOSARTAN POTASSIUM 50 MG TABLET. PO SCH (08:47)
--- NOTE | 2020-12-22 09:52 | NUR ---
consult for Dr. santiago called in
--- NOTE | 2020-12-22 10:16 | PDOC ---
SURGICAL PROGRESS NOTE DATE: 12/22/20 TIME: 10:11 Subjective some wheezing deep breathing Vital Signs Vital Signs Date Time Temp Pulse Resp B/P (MAP) Pulse Ox O2 Delivery O2 Flow Rate FiO2 12/22/20 09:21 Nasal Cannula 2.0 12/22/20 08:47 89 100/51 12/22/20 07:38 98.1 20 95 98.1 I&O Intake and Output 12/22/20 07:00 Intake Total 2210 ml Output Total 2250 ml Balance -40 ml Intake Oral 2210 ml Output Urine Total 2250 ml # Voids 2 General: Cooperative Extremities: Other (left chest wall hematoma ) Labs Laboratory Tests Test 12/20/20 10:25 12/21/20 04:00 Urine Collection Type Unknown Urine Color Pushpa Urine Clarity Clear Urine pH 5.5 (<5.0-8.0) Urine Specific [place] >=1.030 (1.000-1.030) Urine Protein Negative mg/dL (NEG-TRACE) Urine Glucose (UA) Negative mg/dL (NEG) Urine Ketones (Stick) 15 mg/dL (NEG) Urine Blood Trace (NEG) Urine Nitrite Positive (NEG) Urine Bilirubin Negative (NEG) Urine Urobilinogen Dipstick 1.0 mg/dL (0.2 mg/dL) Urine Leukocyte Esterase Small (NEG) Urine RBC 0 /HPF (0-2) Urine WBC 20-40 /HPF (0-4) Urine Squamous Epithelial Cells Few /LPF Urine Bacteria Many /HPF (0-FEW) Urine Hyaline Casts Few /HPF Urine Mucus Mod /LPF White Blood Count 9.1 x10^3/uL (4.0-11.0) Red Blood Count 4.58 x10^6/uL (3.50-5.40) Hemoglobin 13.0 g/dL (12.0-15.5) Hematocrit 40.2 % (36.0-47.0) Mean Corpuscular Volume 88 fL (79-100) Mean Corpuscular Hemoglobin 28 pg (25-35) Mean Corpuscular Hemoglobin Concent 32 g/dL (31-37) Red Cell Distribution Width 14.0 % (11.5-14.5) Platelet Count 230 x10^3/uL (140-400) Neutrophils (%) (Auto) 74 % (31-73) Lymphocytes (%) (Auto) 13 % (24-48) Monocytes (%) (Auto) 9 % (0-9) Eosinophils (%) (Auto) 3 % (0-3) Basophils (%) (Auto) 1 % (0-3) Neutrophils # (Auto) 6.7 x10^3/uL (1.8-7.7) Lymphocytes # (Auto) 1.2 x10^3/uL (1.0-4.8) Monocytes # (Auto) 0.8 x10^3/uL (0.0-1.1) Eosinophils # (Auto) 0.3 x10^3/uL (0.0-0.7) Basophils # (Auto) 0.0 x10^3/uL (0.0-0.2) Sodium Level 142 mmol/L (136-145) Potassium Level 4.6 mmol/L (3.5-5.1) Chloride Level 107 mmol/L (98-107) Carbon Dioxide Level 35 mmol/L (21-32) Anion Gap 0 (6-14) Blood Urea Nitrogen 13 mg/dL (7-20) Creatinine 0.7 mg/dL (0.6-1.0) Estimated GFR (Cockcroft-Gault) 83.5 Glucose Level 107 mg/dL (70-99) Calcium Level 8.6 mg/dL (8.5-10.1) Problem List Problems Medical Problems: (1) Hemothorax on left Status: Acute (2) Multiple fractures of ribs of left side Status: Acute Assessment/Plan pulm toiletry as per PCP, pulm no gen surgery needs, will be available as needed Justicifation of Admission Dx: Justifications for Admission: Justification of Admission Dx: Yes MARA LLOYD [employer] Dec 22, 2020 10:16
[2020-12-22 10:45] VITALS: BP 111/62
[2020-12-22] MEDS: HYDROcodone/APAP 10/325 1 TAB TABLET PO PRN ×2 (14:40→21:17)
--- NOTE | 2020-12-22 14:54 | PN ---
DATE: 12/22/2020 DAILY PROGRESS NOTE LOCATION: She is in room 422. SUBJECTIVE: This 65-year-old female remains hospitalized after a fall with trauma and multiple broken ribs on the left and inability to self-care due to weakness and pain. She is getting breathing treatments around the clock and feels like these have helped her breathing and she is minimally short of breath. OBJECTIVE: VITAL SIGNS: Stable. She is afebrile. GENERAL: She is awake and alert. CHEST: Distant breath sounds. HEART: Regular. ABDOMEN: Obese and benign. IMPRESSION: 1. Fall with inability to self-care, with multiple rib fractures and a large hematoma in the left upper chest. 2. Morbid obesity. PLAN: Continue present care. Therapy will be asked to see her today to see if she is safe for discharge and if not, she may need something like [facility] for a period of time. Help of consultants including Pulmonary is appreciated. MARIO/OVIDIO DR: Annmarie TID: [id number]
[2020-12-22 15:00] VITALS: BP 117/63
[2020-12-22 19:15] VITALS: BP 107/62
--- NOTE | 2020-12-22 22:18 | PDOC2 ---
CONSULT Date of Consult Date of Consult DATE: 12/22/20 TIME: 22:09 Reason for Consult Reason for Consult: Bilateral plantar heel pain, worse on the right Referring Physician Referring Physician: Appl Identification/Chief Complaint Chief Complaint Patient was admitted for a left shoulder and chest pain following a mechanical fall History of Present Illness Reason for Visit: Patient sustained a mechanical fall 7 days ago and has returned and admitted for left shoulder and chest pain. Podiatry was consulted for bilateral plantar heel pain, worse on the right. At bedside, patient relates chronic and persistent plantar heel pain without any traumatic event since 6 months ago. After this recent mechanical fall, the pain has been worse and burning in nature, upwards to 10 out of 10. It is constant with and without weightbearing. Denies any swelling, drainage. Denies any self intervention or history of plantar fasciitis. Otherwise, denies any lower back pain, rashes, symptoms of UTI, conjunctivitis. Past Medical History Cardiovascular: Other Pulmonary: Bronchitis GI: No pertinent hx Heme/Onc: No pertinent hx Hepatobiliary: No pertinent hx Psych: No pertinent hx Renal/: Other Endocrine: Other Past Surgical History Past Surgical History: Other Family History Family History: Hypertension Social History ALCOHOL: none Drugs: None Lives: Alone Current Problem List Problem List Problems Medical Problems: (1) Hemothorax on left Status: Acute (2) Multiple fractures of ribs of left side Status: Acute Current Medications Current Medications Current Medications Sodium Chloride 1,000 ml @ 1,000 mls/hr Q1H IV ; Start 12/20/20 at 09:00; Stop 12/20/20 at 09:59; Status Cancel Sodium Chloride 1,000 ml @ 1,000 mls/hr 1X ONCE IV Last administered on 12/20/20at 09:11; Start 12/20/20 at 09:15; Stop 12/20/20 at 10:14; Status DC Ceftriaxone Sodium (Rocephin) 1 gm 1X ONCE IVP Last administered on 12/20/20at 11:17; Start 12/20/20 at 11:00; Stop 12/20/20 at 11:01; Status DC Ondansetron HCl (Zofran) 4 mg PRN Q8HRS PRN IVP NAUSEA/VOMITING; Start 12/20/20 at 14:15; Stop 12/21/20 at 14:14; Status DC Morphine Sulfate (Morphine Sulfate) 4 mg PRN Q2HR PRN IVP PAIN Last administered on 12/21/20at 03:15; Start 12/20/20 at 14:15; Stop 12/21/20 at 14:14; Status DC Acetaminophen (Tylenol) 650 mg PRN Q4HRS PRN PO FEVER > 100.3'F; Start 12/20/20 at 14:15; Stop 12/21/20 at 14:14; Status DC Furosemide (Lasix) 40 mg BID94 PO Last administered on 12/22/20at 14:40; Start 12/21/20 at 11:00 Losartan Potassium (Cozaar) 50 mg DAILY PO Last administered on 12/22/20at 08:47; Start 12/21/20 at 11:00 Oxybutynin Chloride (Ditropan) 5 mg BID PO Last administered on 12/22/20at 08:47; Start 12/21/20 at 11:00 Acetaminophen/ Hydrocodone Bitart (Lortab 10/325) 1 tab PRN Q6HRS PRN PO MODERATE TO SEVERE PAIN Last administered on 12/22/20at 21:17; Start 12/21/20 at 10:30 Albuterol/ Ipratropium (Duoneb) 3 ml RTQID NEB Last administered on 12/22/20at 20:35; Start 12/21/20 at 12:00 Active Scripts Active Hydrocodone-Acetamin 5-325 mg (Hydrocodone/Acetaminophen) 1 Each Tablet 1 Each PO Q6HRS PRN Furosemide 40 Mg Tablet 40 Mg PO BID94 30 Days Doxycycline Hyclate 100 Mg Tablet 100 Mg PO BID 10 Days Reported Irbesartan 150 Mg Tablet 150 Mg PO DAILY Oxybutynin Chloride Er (Oxybutynin Chloride) 10 Mg Tab.er.24 10 Mg PO DAILY Allergies Allergies: Coded Allergies: No Known Drug Allergies (Unverified , 12/14/20) ROS General: No: Chills, Night Sweats, Fatigue, Malaise, Appetite, Other ENDOCRINE: YES: Skin Changes; No: Breast Changes, Galactorrhea, Hair Pattern Changes, Hot Flashes, Malaise/lethargy, Mood Swings, Palpitations, Polydipsia/polyuria, Temperature Intolerance, Unexpected Weight Changes, Other Genitourinary: No Dysuria, No Frequency, No Incontinence, No Hematuria, No Retention, No Discharge, No Urgency, No Flank Pain, No Other, No , No , No , No , No , No , No Skin: Yes Dry Skin Physical Exam General: Alert, Oriented X3 Extremities: Normal pulses, Other (No pitting edema, proximal streaking or cyanotic changes to either foot) Skin: Other (Mild moccasin pattern with erythematous base without any open lesion, drainage, fluctuance to the plantar central heel, bilateral) Neuro: Sensation intact MUSCULOSKELETAL: Other (No TTP to the medial central calcaneal, ABH, or calcaneal squeeze. Pinpoint centralized tenderness over the moccasin skin changes.) Vitals VITALS Vital Signs Date Time Temp Pulse Resp B/P (MAP) Pulse Ox O2 Delivery O2 Flow Rate FiO2 12/22/20 21:17 20 Room Air 12/22/20 20:35 93 2.0 12/22/20 19:15 97.9 100 107/62 (77) 97.9 Labs Labs Laboratory Tests Test 12/21/20 04:00 White Blood Count 9.1 x10^3/uL (4.0-11.0) Red Blood Count 4.58 x10^6/uL (3.50-5.40) Hemoglobin 13.0 g/dL (12.0-15.5) Hematocrit 40.2 % (36.0-47.0) Mean Corpuscular Volume 88 fL (79-100) Mean Corpuscular Hemoglobin 28 pg (25-35) Mean Corpuscular Hemoglobin Concent 32 g/dL (31-37) Red Cell Distribution Width 14.0 % (11.5-14.5) Platelet Count 230 x10^3/uL (140-400) Neutrophils (%) (Auto) 74 % (31-73) Lymphocytes (%) (Auto) 13 % (24-48) Monocytes (%) (Auto) 9 % (0-9) Eosinophils (%) (Auto) 3 % (0-3) Basophils (%) (Auto) 1 % (0-3) Neutrophils # (Auto) 6.7 x10^3/uL (1.8-7.7) Lymphocytes # (Auto) 1.2 x10^3/uL (1.0-4.8) Monocytes # (Auto) 0.8 x10^3/uL (0.0-1.1) Eosinophils # (Auto) 0.3 x10^3/uL (0.0-0.7) Basophils # (Auto) 0.0 x10^3/uL (0.0-0.2) Sodium Level 142 mmol/L (136-145) Potassium Level 4.6 mmol/L (3.5-5.1) Chloride Level 107 mmol/L (98-107) Carbon Dioxide Level 35 mmol/L (21-32) Anion Gap 0 (6-14) Blood Urea Nitrogen 13 mg/dL (7-20) Creatinine 0.7 mg/dL (0.6-1.0) Estimated GFR (Cockcroft-Gault) 83.5 Glucose Level 107 mg/dL (70-99) Calcium Level 8.6 mg/dL (8.5-10.1) Assessment/Plan Assessment/Plan Possible fungal with superimposed bacterial infection to the plantar central heel. Clinically not significant for foreign body, cellulitis, deep tissue abscess. -Recommend bilateral surveillance foot x-ray -Pain management with mechanical offload -May trial antifungal topical with or without topical clindamycin -I explained to patient that this can be better addressed as an outpatient after trialing with a few topicals first. Patient verbalized understanding and will call the office for outpatient follow-up PETE OLSON DPM Dec 22, 2020 22:18
[2020-12-22 23:08] VITALS: BP 104/58
[2020-12-23 03:05] VITALS: BP 110/62
[2020-12-23 07:05] VITALS: BP 121/63
--- NOTE | 2020-12-23 07:50 | RAD ---
EXAMINATION: Chest radiograph. VIEWS: Single view COMPARISON: 12/20/2020 INDICATION:65 years, Female, the fractures. FINDINGS: Low lung volume, may accentuate cardiac silhouette and pulmonary vascularity. Normal cardiomediastina l silhouette. Multifocal bilateral perihilar and basilar patchy airspace opacities, stable to slightl y worsened since prior exam. No sizable pleural effusion or pneumothorax. Previously seen displaced l eft rib fractures are not appreciated on the current exam. IMPRESSION: 1. Stable to slightly worsening multifocal bilateral perihilar and basilar patchy airspace opacities, may represent atelectatic changes versus infiltrates. 2.Previously seen displaced left rib fractures are not appreciated on the current exam. Electronically signed by: Dilip Saenz MD (12/23/2020 7:47 AM) [facility]
--- NOTE | 2020-12-23 07:58 | PN ---
DATE: 12/23/2020 SUBJECTIVE: This 65-year-old female remains hospitalized after a fall with multiple rib fractures and inability to do self care. She is still having according to Therapy issues and they recommend correction. She denies any significant shortness of breath with a lot of pain on her left side that seems to move around. She also complains of some pain in the left thigh area and does have some bruising present therapy. OBJECTIVE: VITAL SIGNS: Stable. GENERAL: She is awake, alert. CHEST: Distant breath sounds, but clear. She has a stable large hematoma in the left upper chest. HEART: Regular. ABDOMEN: Obese and benign. IMPRESSION: 1. Fall with multiple rib fractures and inability to do self care. 2. Hematoma, left upper chest. 3. Morbid obesity. PLAN: Continue present care. We will assume that probably correction, which she is going to need at the time of discharge are still awaiting physical therapy evaluation, which has not happened yet. USHA DR: Annmarie TID: [id number]
[2020-12-23] MEDS: FUROSEMIDE 40 MG TABLET. PO SCH ×2 (08:25→16:14)
[2020-12-23] MEDS: LOSARTAN POTASSIUM 50 MG TABLET. PO SCH (08:25)
[2020-12-23] MEDS: OXYBUTYNIN CHLORIDE 5 MG TABLET PO SCH ×2 (08:25→21:09)
[2020-12-23] MEDS: HYDROcodone/APAP 10/325 1 TAB TABLET PO PRN ×2 (08:32→21:11)
[2020-12-23] MEDS: IPRATRPIUM/ALBUTEROL 0.5/2.5MG 3 ML NEBU. NEB SCH ×4 (09:12→20:39)
--- NOTE | 2020-12-23 09:51 | PDOC ---
SURGICAL PROGRESS NOTE DATE: 12/23/20 TIME: 09:47 Subjective doing ok working with therapy no pain to shoulder Vital Signs Vital Signs Date Time Temp Pulse Resp B/P (MAP) Pulse Ox O2 Delivery O2 Flow Rate FiO2 12/23/20 09:21 Nasal Cannula 2.0 12/23/20 09:13 93 12/23/20 08:25 92 121/63 12/23/20 07:05 98.6 18 98.6 I&O Intake and Output 12/23/20 07:00 Intake Total 480 ml Output Total 1900 ml Balance -1420 ml Intake Oral 480 ml Output Urine Total 1900 ml General: Alert, Oriented X3, Cooperative Abdomen: Soft Skin: Other (hematoma left chest stable) Problem List Problems Medical Problems: (1) Hemothorax on left Status: Acute (2) Multiple fractures of ribs of left side Status: Acute Assessment/Plan sub q hematoma on shoulder-stable, requires no additional intervention, observation--no joint involvement on imaging as per PCP pulm toiletry will sign off, please call if further assistance needed Justicifation of Admission Dx: Justifications for Admission: Justification of Admission Dx: Yes MARA LLOYD THREAD GRINDER Dec 23, 2020 09:51
--- NOTE | 2020-12-23 10:39 | PDOC ---
PULMONARY PROGRESS NOTES DATE: 12/23/20 TIME: 10:36 Subjective Patient wheezing today. Denies any shortness of breath. No chest pain. Vitals Vital Signs Date Time Temp Pulse Resp B/P (MAP) Pulse Ox O2 Delivery O2 Flow Rate FiO2 12/23/20 09:21 Nasal Cannula 2.0 12/23/20 09:13 93 12/23/20 08:25 92 121/63 12/23/20 07:05 98.6 18 98.6 General: Alert, No acute distress Lungs: Wheezing Cardiovascular: S1 Abdomen: Soft, Other Neuro Exam: Alert Extremities: Other (Left upper chest hematoma.) Medications Active Scripts Medications Dose Route/Sig Max Daily Dose Days Date Category Hydrocodone-Acetamin 5-325 mg (Hydrocodone/Acetaminophen) 1 Each Tablet 1 Each PO Q6HRS PRN 12/14/20 Rx Furosemide 40 Mg Tablet 40 Mg PO BID94 30 10/02/19 Rx Doxycycline Hyclate 100 Mg Tablet 100 Mg PO BID 10 10/02/19 Rx Irbesartan 150 Mg Tablet 150 Mg PO DAILY 09/28/19 Reported Oxybutynin Chloride Er (Oxybutynin Chloride) 10 Mg Tab.er.24 10 Mg PO DAILY 09/28/19 Reported Comments Chest x-ray reviewed 12/22/2020 Development of mild interstitial infiltrates likely suggestive of CHF. Impression . 1. Status post fall with multiple left-sided rib fractures including left 2nd, 3rd, 4th, 5th and 6th rib fractures. No pneumothorax seen. 2. Tiny pleural effusion on the left, likely tiny hemothorax. Not clinically significant. 3. hematoma in the anterior left shoulder with significant swelling. Discussed with surgery. No intervention for drainage. 4. History of clinically suspected pulmonary hypertension from underlying suspected sleep apnea/obesity hypoventilation syndrome. She is intolerant to CPAP. 5. Bronchospasm in a patient who is a non-smoker and nonasthmatic. Chest x-ray with interstitial infiltrates. I suspect this is cardiac wheezing. Plan . 1. Continue present oxygen, keep saturation 92 and above. 2. Continue DuoNebs 4 times daily. Add Pulmicort nebulizer. 3. We'll give IV Lasix 40 mg to improve cardiac wheezing. 4. Pain control. 5. incentive spirometry/pulmonary toilet. 6. orthopedic consultation. 7. Pain control per PCP. 8. Discussed with RN and respiratory therapist MARLYN PIRES MD Dec 23, 2020 10:39
[2020-12-23] MEDS ORDERED: FUROSEMIDE 40 MG/4 ML VIAL. IVP ONE (10:45)
[2020-12-23 11:16] VITALS: BP 115/67
[2020-12-23] MEDS: BUDESONIDE 0.5 MG/2 ML NEBU. NEB SCH ×2 (11:31→20:39)
[2020-12-23] MEDS: cefTRIAXone IV Push 1 GM VIAL. IVP SCH (12:58)
[2020-12-23 15:00] VITALS: BP 104/42
[2020-12-23 19:15] VITALS: BP 82/31
[2020-12-23 23:12] VITALS: BP 105/31
[2020-12-24] VITALS (7 sets, daily range): BP systolic 90–124; BP diastolic 41–58
--- NOTE | 2020-12-24 07:49 | PDOC ---
PULMONARY PROGRESS NOTES DATE: 12/24/20 TIME: 07:47 Subjective on 02 no cp sob better has occ wheezing has moni on 02 qhs at home Vitals Vital Signs Date Time Temp Pulse Resp B/P (MAP) Pulse Ox O2 Delivery O2 Flow Rate FiO2 12/24/20 03:44 97.6 90 18 106/50 (68) 94 Nasal Cannula 2.0 97.6 ROS: No Nausea General: Alert, No acute distress Lungs: Other (b lat diminisheg ) Cardiovascular: S1 Abdomen: Soft, Other (obese) Neuro Exam: Alert Extremities: Other (Left upper chest hematoma.) Labs Laboratory Tests Test 12/23/20 10:25 SARS-CoV-2 RNA (SUKI) Negative (Negative) SARS-CoV-2 Antigen (Rapid) Negative (NEGATIVE) Laboratory Tests Test 12/23/20 10:25 SARS-CoV-2 RNA (SUKI) Negative (Negative) SARS-CoV-2 Antigen (Rapid) Negative (NEGATIVE) Medications Active Scripts Medications Dose Route/Sig Max Daily Dose Days Date Category Hydrocodone-Acetamin 5-325 mg (Hydrocodone/Acetaminophen) 1 Each Tablet 1 Each PO Q6HRS PRN 12/14/20 Rx Furosemide 40 Mg Tablet 40 Mg PO BID94 30 10/02/19 Rx Doxycycline Hyclate 100 Mg Tablet 100 Mg PO BID 10 10/02/19 Rx Irbesartan 150 Mg Tablet 150 Mg PO DAILY 09/28/19 Reported Oxybutynin Chloride Er (Oxybutynin Chloride) 10 Mg Tab.er.24 10 Mg PO DAILY 09/28/19 Reported Comments Chest x-ray reviewed 12/22/2020 Development of mild interstitial infiltrates likely suggestive of CHF. Impression . 1. Status post fall with multiple left-sided rib fractures including left 2nd, 3rd, 4th, 5th and 6th rib fractures. No pneumothorax seen. 2. Tiny pleural effusion on the left, likely tiny hemothorax. Not clinically significant. 3. hematoma in the anterior left shoulder with significant swelling. Discussed with surgery. No intervention for drainage. 4. History of clinically suspected pulmonary hypertension from underlying suspected sleep apnea/obesity hypoventilation syndrome. She is intolerant to CPAP. 5. Bronchospasm in a patient who is a non-smoker and nonasthmatic. Chest x-ray with interstitial infiltrates. I suspect this is cardiac wheezing. Plan . 1. titrate fio2 to keep saturation 90 and above. 2. Continue DuoNebs 4 times daily. Pulmicort nebulizer. no wheezing today 3. lasix monitor k, cr 4. IS to use multiple times an hour 5. incentive spirometry/pulmonary toilet. 6. orthopedic consultation. 7. Pain control per PCP. avoid over sedation 8. Discussed with pt JOHANN AUGUSTINE MD Dec 24, 2020 07:49
[2020-12-24] MEDS: BUDESONIDE 0.5 MG/2 ML NEBU. NEB SCH ×2 (08:06→20:24)
[2020-12-24] MEDS: IPRATRPIUM/ALBUTEROL 0.5/2.5MG 3 ML NEBU. NEB SCH ×4 (08:06→20:24)
[2020-12-24] MEDS: OXYBUTYNIN CHLORIDE 5 MG TABLET PO SCH ×2 (08:19→20:17)
[2020-12-24] MEDS: FUROSEMIDE 40 MG TABLET. PO SCH ×2 (08:19→16:19)
[2020-12-24] MEDS: LOSARTAN POTASSIUM 50 MG TABLET. PO SCH (08:19)
[2020-12-24] MEDS: HYDROcodone/APAP 10/325 1 TAB TABLET PO PRN ×2 (11:36→18:32)
[2020-12-24] MEDS: cefTRIAXone IV Push 1 GM VIAL. IVP SCH (12:20)
--- NOTE | 2020-12-24 15:14 | PDOC ---
Provider Note Date of Service: DATE: 12/24/20 TIME: 15:14 Provider Note no temp, labs ok, urine shows e coli sens to all- use cipro 2 more d- placement Justifications for Admission Other Justification GARRISON FOSTER MD Dec 24, 2020 15:14
[2020-12-25 03:00] VITALS: BP 117/52
[2020-12-25 07:00] VITALS: BP 100/36
--- NOTE | 2020-12-25 07:13 | RAD ---
EXAM: XR FEET 2 VIEWS 12/24/2020 3:59 PM CLINICAL INDICATION: Heel pain COMPARISON: None TECHNIQUE: 3 views of the right foot FINDINGS: No acute fracture. Alignment is normal. Joint spaces are maintained. There are plantar and Achilles calcaneal enthesophytes bilaterally. No focal soft tissue abnormality. IMPRESSION: No acute osseous abnormality. Bilateral calcaneal enthesopathy. Electronically signed by: Ivette Davies MD (12/25/2020 7:10 AM) [id number]
--- NOTE | 2020-12-25 08:01 | PDOC ---
PULMONARY PROGRESS NOTES DATE: 12/25/20 TIME: 08:00 Subjective on 02 no cp sob better has occ cough has moni on 02 qhs at home Vitals Vital Signs Date Time Temp Pulse Resp B/P (MAP) Pulse Ox O2 Delivery O2 Flow Rate FiO2 12/25/20 07:00 97.8 91 28 100/36 (57) 91 Nasal Cannula 2.0 97.8 ROS: No Nausea General: Alert, No acute distress Lungs: Other (b lat diminished bs) Cardiovascular: S1, S2 Abdomen: Soft, Non-tender, Other (obese) Neuro Exam: Alert Extremities: Other (Left upper chest hematoma.) Skin: Warm Labs Laboratory Tests Test 12/23/20 10:25 SARS-CoV-2 RNA (SUKI) Negative (Negative) SARS-CoV-2 Antigen (Rapid) Negative (NEGATIVE) Medications Active Scripts Medications Dose Route/Sig Max Daily Dose Days Date Category Hydrocodone-Acetamin 5-325 mg (Hydrocodone/Acetaminophen) 1 Each Tablet 1 Each PO Q6HRS PRN 12/14/20 Rx Furosemide 40 Mg Tablet 40 Mg PO BID94 30 10/02/19 Rx Doxycycline Hyclate 100 Mg Tablet 100 Mg PO BID 10 10/02/19 Rx Irbesartan 150 Mg Tablet 150 Mg PO DAILY 09/28/19 Reported Oxybutynin Chloride Er (Oxybutynin Chloride) 10 Mg Tab.er.24 10 Mg PO DAILY 09/28/19 Reported Comments Chest x-ray reviewed 12/22/2020 Development of mild interstitial infiltrates likely suggestive of CHF. Impression . 1. Status post fall with multiple left-sided rib fractures including left 2nd, 3rd, 4th, 5th and 6th rib fractures. No pneumothorax seen. 2. Tiny pleural effusion on the left, likely tiny hemothorax. Not clinically significant. 3. hematoma in the anterior left shoulder with significant swelling. Discussed with surgery. No intervention for drainage. 4. History of clinically suspected pulmonary hypertension from underlying suspected sleep apnea/obesity hypoventilation syndrome. She is intolerant to CPAP. 5. Bronchospasm in a patient who is a non-smoker and nonasthmatic. Chest x-ray with interstitial infiltrates. I suspect this is cardiac wheezing. Plan . 1. titrate fio2 to keep saturation 90 and above. is on home 02 qhs 2. Continue DuoNebs 4 times daily. Pulmicort nebulizer. no wheezing today 3. lasix monitor k, cr 4. IS to use multiple times an hour 5. incentive spirometry/pulmonary toilet. 6. orthopedic consulted 7. Pain control per PCP. avoid over sedation 8. Discussed with pt JOHANN AUGUSTINE MD Dec 25, 2020 08:01
[2020-12-25] MEDS: BUDESONIDE 0.5 MG/2 ML NEBU. NEB SCH ×2 (08:03→20:56)
[2020-12-25] MEDS: IPRATRPIUM/ALBUTEROL 0.5/2.5MG 3 ML NEBU. NEB SCH ×4 (08:03→20:56)
[2020-12-25] MEDS: OXYBUTYNIN CHLORIDE 5 MG TABLET PO SCH ×2 (08:38→20:22)
[2020-12-25] MEDS: CIPROFLOXACIN HCL 250 MG TABLET. PO SCH ×2 (08:38→20:22)
[2020-12-25] MEDS: FUROSEMIDE 40 MG TABLET. PO SCH ×2 (08:39→15:55)
--- NOTE | 2020-12-25 09:46 | PDOC ---
Provider Note Date of Service: DATE: 12/25/20 TIME: 09:45 Provider Note status same, using norco prn, on cipro for uti now- rest same, placement Justifications for Admission Other Justification GARRISON FOSTER MD Dec 25, 2020 09:46
[2020-12-25 11:00] VITALS: BP 92/48
[2020-12-25 15:00] VITALS: BP 128/55
[2020-12-25 19:00] VITALS: BP 111/57
[2020-12-25] MEDS: HYDROcodone/APAP 10/325 1 TAB TABLET PO PRN (20:22)
[2020-12-25 23:00] VITALS: BP 130/53
[2020-12-26 03:00] VITALS: BP 138/59
[2020-12-26 07:00] VITALS: BP 119/50
[2020-12-26] MEDS: IPRATRPIUM/ALBUTEROL 0.5/2.5MG 3 ML NEBU. NEB SCH ×2 (07:55→11:48)
[2020-12-26] MEDS: BUDESONIDE 0.5 MG/2 ML NEBU. NEB SCH (07:56)
[2020-12-26] MEDS: CIPROFLOXACIN HCL 250 MG TABLET. PO SCH (09:39)
[2020-12-26] MEDS: OXYBUTYNIN CHLORIDE 5 MG TABLET PO SCH (09:40)
[2020-12-26] MEDS: FUROSEMIDE 40 MG TABLET. PO SCH (09:40)
[2020-12-26 11:00] VITALS: BP 103/45
[2020-12-26] MEDS ORDERED: IPRA3AMP29 NEB (13:59)
[2020-12-26] MEDS ORDERED: CIPR250T30 PO (13:59)
--- NOTE | 2020-12-26 14:01 | SNU/HH DC ---
DISCHARGE ORDERS DISCHARGE INFORMATION: DISCHARGE DATE: Dec 26, 2020 FINAL DIAGNOSIS Problems Medical Problems: (1) Hemothorax on left Status: Acute (2) Multiple fractures of ribs of left side Status: Acute CONDITION ON DISCHARGE: Stable CODE STATUS: Code Status: Full ASSISTED: SNF STAY <30 DAYS: No HOSPICE: HOSPICE: No HOSPICE EVAL & TREAT: No LTAC: ADMIT TO LTAC: Yes POST DISCHARGE ORDERS: ACTIVITY ORDERS: Activity as tolerated, Bedrest today WEIGHT BEARING STATUS: As tolerated BATHING ORDERS: Shower-keep dressing dry DIET AFTER DISCHARGE: Regular WOUND/INCISION CARE: Keep wound/cast CDI CHECKS AFTER DISCHARGE: CHECKS AFTER DISCHARGE: Check blood press - daily, Check your Temp as needed, Weigh Yourself Daily TREATMENT/EQUIPMENT ORDERS: ADAPTIVE EQUIPMENT NEEDED: None RESPIRATORY EQUIPMENT NEEDED: Oxygen Physical Therapy For: Evalulation/Treatment Occupational Therapy For: Evaluation/Treatment DISCHARGE MEDICATIONS: Home Meds Active Scripts Ipratropium/Albuterol Sulfate (DUONEB 0.5-3(2.5) MG/3 ML) 3 Ml Ampul.neb, 3 ML NEB RTQID for fractured ribs for 30 Days, #120 EACH Prov:MICHELA HERNANDES MD 12/26/20 Ciprofloxacin Hcl (CIPRO) 250 Mg Tablet, 250 MG PO BID for uti for 7 Days, #14 TAB Prov:MICHELA HERNANDES MD 12/26/20 Hydrocodone/Acetaminophen (Hydrocodone-Acetamin 5-325 mg) 1 Each Tablet, 1 EACH PO Q6HRS PRN for PAIN, #12 TAB Prov:NELLY SPENCER DO 12/14/20 Furosemide (FUROSEMIDE) 40 Mg Tablet, 40 MG PO BID94 for edema for 30 Days, #60 TAB Prov:MICHELA HERNANDES MD 10/02/19 Reported Medications Irbesartan (IRBESARTAN) 150 Mg Tablet, 150 MG PO DAILY for HTN 09/28/19 Oxybutynin Chloride (OXYBUTYNIN CHLORIDE ER) 10 Mg Tab.er.24, 10 MG PO DAILY for overactive bladder 09/28/19 Discontinued Scripts Doxycycline Hyclate (DOXYCYCLINE HYCLATE) 100 Mg Tablet, 100 MG PO BID for cellulitis for 10 Days, #20 TAB Prov:MICHELA HERNANDES MD 10/02/19 MICHELA HERNANDES MD Dec 26, 2020 14:01
[2020-12-26 15:00] VITALS: BP 138/84
--- NOTE | 2020-12-26 15:17 | NUR ---
Report called to Past[facility] at [facility].
--- NOTE | 2020-12-26 16:03 | DS ---
DATE OF DISCHARGE: 12/26/2020 PRIMARY DIAGNOSES: Fall with traumatic rib fractures and hemothorax. ADDITIONAL DIAGNOSES: Morbid obesity, chronic osteoarthritic knee pain, bilateral heel pain and inability to do self-care. CHIEF COMPLAINT AND HISTORY OF PRESENT ILLNESS: This 65-year-old morbidly obese female had a fall a week or so prior to admission. She has been seen in the Emergency Room with negative x-rays and sent home. She was more weak than usual, troubles with breathing and was really hurting when she would try to prior to transfer, she got to the point where she was unable to take care of herself. She was seen again in the hospital Emergency Room where she was found to have multiple rib fractures and hemothorax and admitted for the same. SUMMARY OF STAY: The patient was admitted, treated with breathing treatments throughout the same to try to prevent pneumonia. Worked with therapy and was felt to need acute inpatient rehab at discharge and this was accomplished due to her deficits in being able to function at a high enough level to return to home. She did have bilateral heel pain. Podiatry saw her and planning on seeing her as an outpatient in the office. X-rays of her heels did show bilateral heel spurs and Podiatry did not feel they wanted to inject her prior to her leaving. She was pulmonary piper stable, but from a therapy standpoint, felt to need a lot of rehab and this was accomplished on the day of dismissal. DISPOSITION: The patient is discharged to [facility] inpatient rehab. DIET: Regular diet. ACTIVITY: As tolerated. Office on followup. DISCHARGE MEDICATIONS: Listed on the med rec and have been addressed. She will need PT and OT going forward. EMILY DR: Annmarie TID: [id number]
--- NOTE | 2020-12-26 17:20 | NUR ---
Discharge Note: ZI SIMON R 4 [place] Discharge instructions and discharge home medications reviewed with Other facility and a copy given. All questions have been answered and understanding verbalized. The following instructions and handouts were given: Diet, activity,medication list and follow up instructions provided to [facility]. Discontinued lines and drains: Peripheral IV discontinud and catheter intact. Patient discharged to Rehab Facility with Self via Wheelchair
--- NOTE | 2020-12-26 17:47 | PN ---
DATE: 12/26/2020 SUBJECTIVE: This 65-year-old white female remains follow her hospitalized after trauma with a fall with multiple broken left ribs and generalized immobility. She feels like the pain may be improving slightly and denies any respiratory embarrassment. She does complain mainly about her feet this leaving her with heel pain making it impossible to get up and around. Podiatry is following for the same. OBJECTIVE: VITAL SIGNS: Stable. She is afebrile. GENERAL: She is awake and alert. CHEST: Distant breath sounds, clear. HEART: Regular. ABDOMEN: Benign. LABORATORY DATA: Therapy recommends acute inpatient rehab, which I think is reasonable. I think podiatry may want to inject her heels, which show heel spurs on x-ray and see if this would help her mobility. IMPRESSION: 1. Fall with multiple rib fractures and inability to self-care. 2. Morbid obesity. 3. Hematoma, left upper chest. Softening up. 4. Bilateral heel pain, likely a heel spurs were generated. PLAN: As above. DUTCH DR: Annmarie TID: [id number]
[2020-12-26] MEDS ORDERED: LACTOBACILLUS RHAMNOSUS GG 1 CAPSULE. PO SCH (21:00)
== END 2020-12-26 17:15 | DRG 183 ==
LOC: ER 08:10 → ED HOLD 14:06 → 4 NORTH 15:43
PROVIDERS: ADMIT Family Medicine; ATTEND Family Medicine
DX: S22.42XA Multiple fractures of ribs, left side, initial encounter for closed fracture (principal); S27.1XXA Traumatic hemothorax, initial encounter; Z68.45 Body mass index [BMI] 70 or greater, adult; E04.2 Nontoxic multinodular goiter; E66.01 Morbid (severe) obesity due to excess calories; I10 Essential (primary) hypertension; I27.20 Pulmonary hypertension, unspecified; J98.01 Acute bronchospasm; M19.019 Primary osteoarthritis, unspecified shoulder; M77.31 Calcaneal spur, right foot; M77.32 Calcaneal spur, left foot; N32.81 Overactive bladder; Z82.49 Family history of ischemic heart disease and other diseases of the circulatory system; W10.8XXA Fall (on) (from) other stairs and steps, initial encounter; Y93.89 Activity, other specified; Y92.89 Other specified places as the place of occurrence of the external cause; Y99.8 Other external cause status; Z20.822 Contact with and (suspected) exposure to COVID-19; B96.20 Unspecified Escherichia coli [E. coli] as the cause of diseases classified elsewhere
CPT/HCPCS: 36415; 71045; 71250; 73030; 76881; 80048; 80053; 81001; 82550; 82962; 83880; 84443; 84484; 85025; 87077; 87086; 87186; 87426; 94640; 94760; 96361; 96374; G0238; J0696; J1940; J2270; J7030; U0003; U0005; 73620-50; 97110-GO; 97530-GP; 97535-GO; 99285-25; G0378; J7626

== ENCOUNTER 2021-01-16 08:49 | Inpatient (IN) | payer MEDICARE, MEDICAID ==
[~2021-01-16] VITALS: Ht 167.6 cm; Wt 193.7 kg
[~2021-01-16 08:49] MED LIST changes: +CIPR250T30 PO; +IPRA3AMP29 NEB
[2021-01-16] MEDS ORDERED: IV NORMAL SALINE 500ML BAG 500 ML IV ONE (09:15)
--- NOTE | 2021-01-16 09:16 | PHYS DOC ---
Past Medical History Past Medical History: Hypertension Additional Past Medical Histor: morbid obesity, overactive bladder Past Surgical History: Cholecystectomy Smoking Status: Never Smoker Alcohol Use: None Drug Use: None General Adult EDM: Chief Complaint: WEAKNESS/GENERALIZED HPI: HPI: Patient is a 65 year old female with history of morbid obesity, HTN, [place] on nighttime oxygen who presents with 7 days of increasing generalized weakness, urinary frequency, and occasional hallucinations. States that she was started on Bactrim earlier this week for increasing urinary frequency, and sensation of incomplete bladder emptying. She is on oxybutynin. She is also started on clindamycin on 01/05 for dental pain. She is concerned that she may have had hallucinations that she was reading a book table, and she looked down and then there was no book. She doesn't think that she has slept in 5 days. Lives alone. Denies etoh, drugs, tobacco use. Denies fever/chills. Denies chest pain. Denies cough or sick contacts. Did receive Materna vaccine. She does feel slightly more short of breath than usual. Review of Systems: Review of Systems: Constitutional: Reports generalized weakness. Denies fever or chills. [] Eyes: Denies change in visual acuity. [] HENT: Denies nasal congestion or sore throat. [] Respiratory: Denies cough or shortness of breath. [] Cardiovascular: Denies chest pain or edema. [] GI: Denies abdominal pain, nausea, vomiting, bloody stools or diarrhea. [] : Reports urinary frequency and incomplete emptying. Denies dysuria. [] Musculoskeletal: Denies back pain or joint pain. [] Integument: Denies rash. [] Neurologic: Reports visual hallucinations. Denies headache, focal weakness or sensory changes. [] Endocrine: Denies polyuria or polydipsia. [] Lymphatic: Denies swollen glands. [] Psychiatric: Denies depression or anxiety. [] Heart Score: C/O Chest Pain: No Risk Factors: Risk Factors: DM, Current or recent (<one month) smoker, HTN, HLP, family history of CAD, obesity. Risk Scores: Score 0 - 3: 2.5% MACE over next 6 weeks - Discharge Home Score 4 - 6: 20.3% MACE over next 6 weeks - Admit for Clinical Observation Score 7 - 10: 72.7% MACE over next 6 weeks - Early Invasive Strategies Current Medications: Current Medications Medications (Trade) Dose Ordered Sig/Esperanza Start Time Stop Time Status Last Admin Dose Admin Sodium Chloride 500 ml @ 500 mls/hr 1X ONCE 01/16/21 09:15 01/16/21 10:14 Allergies: Allergies: Allergies Coded Allergies Type Severity Reaction Last Updated Verified No Known Drug Allergies 12/14/20 No Physical Exam: PE: Constitutional: Morbidly obese. No distress. On 4 L/min nasal cannula.. [] HENT: Normocephalic, atraumatic. Poor dentition, several missing teeth and a fr actured tooth on the right mandibular surface. [] Eyes: onjunctiva normal, no discharge. [] Neck: Normal range of motion, no tenderness, supple, no stridor. [] Cardiovascular:Heart rate regular rhythm, no murmur [] Lungs & Thorax: Obese, distant breath sounds bilaterally. [] Abdomen: Obese, no tenderness. Extremities: Bilateral lower extremities edematous and are wrapped with pressure dressing. No tenderness, no cyanosis, no clubbing, ROM intact. [] Neurologic: Alert and oriented X 3, normal motor function, normal sensory function, no focal deficits noted. [] Psychologic: Affect normal, judgement normal, mood normal. [] EKG: EKG: [] Radiology/Procedures: Radiology/Procedures: [] Impression: [facility] [address] [place] [address] IMAGING REPORT Signed PATIENT: ZI SIMON RACCOUNT: [id number] : 1955 LOCATION: ER AGE: 65 SEX: F EXAM STATUS: REG ER ORD. PHYSICIAN: LEEANN EASLEY MD REASON: sob PROCEDURE: CHEST AP ONLY Exam Date: 01/16/2021 9:14 AM XR CHEST 1V Indication: Reason: sob / Spl. Instructions: / History: . Comparison December 22, 2020 FINDINGS/ IMPRESSION: Lung volumes remain low, accentuating cardiac silhouette and pulmonary vascularity. The cardiac silhouette is unchanged. Diffuse bilateral lung infiltrates are unchanged. Small pleural effusion is suspected. No pneumothorax. Electronically signed by: Joyce Carrillo MD (01/16/2021 9:38 AM) [facility] DICTATED and SIGNED BY: JOYCE CARRILLO MD DATE: 01/16/21 [id number] [facility] [address] [place] [address] IMAGING REPORT Signed PATIENT: ZI SIMON RACCOUNT: [id number] : 1955 LOCATION: ER AGE: 65 SEX: F EXAM STATUS: REG ER ORD. PHYSICIAN: LEEANN EASLEY MD REASON: FALLS, CONFUSION PROCEDURE: CT HEAD WO CONTRAST EXAM: Head CT without contrast. HISTORY: Fall. Confusion. TECHNIQUE: Computed tomographic images of the head were obtained without contrast. *One or more of the following individualized dose reduction techniques were utilized for this examination: 1. Automated exposure control. 2. Adjustment of the mA and/or kV according to patient size. 3. Use of iterative reconstruction technique. COMPARISON: None. FINDINGS: There is no acute or subacute extra-axial or intraparenchymal hemorrhage. There is no mass effect or midline shift. There is no hydrocephalus. There are areas of decreased attenuation within the cerebral white matter, nonspecific and likely related to chronic small vessel disease. There is a tiny right maxillary sinus mucous retention cyst. The mastoid air cells are clear. The orbits are unremarkable. There is no suspicious calvarial lesion. IMPRESSION: No acute intracranial findings. Electronically signed by: Magdalena Beverly MD (01/16/2021 10:51 AM) [facility] DICTATED and SIGNED BY: MAGDALENA BEVERLY MD DATE: 01/16/21 [id number] 0 Course & Med Decision Making: Course & Med Decision Making Pertinent Labs and Imaging studies reviewed. (See chart for details) Patient is 65-year-old female who presents with generalized weakness, urinary frequency/incomplete emptying, and visual hallucinations. On arrival is afebrile, blood pressures are low 80s/40s, satting 90% on 4 L/min nasal cannula. Sepsis work-up started with chest x-ray, UA, lactic acid, blood cultures. Is already on Bactrim and clindamycin for treatment of presumed UTI and dental infection, respectively. Is also on oxybutynin for overactive bladder, which may be contributing to her urinary retention as well as her hallucinations. IV fluids ordered. 0916 No acute process on CXR. BARBARA to 1.6 with baseline less than 1. Awaiting UA. She has been unable to void despite IV fluid. Concerned about retention potentially related to meds. Will obtain renal ultrasound to evaluate for obstructive nephropathy/hydronephrosis. Straight cath PRN. Given confusion and falls, CT head was obtained without acute process. Will require admission to hospital for further management. [id number] Shahab Disclaimer: Shahab Disclaimer: This electronic medical record was generated, in whole or in part, using a voice recognition dictation system. Departure Departure Impression: Primary Impression: Delirium Additional Impression: BARBARA (acute kidney injury) Disposition: ADMITTED INPATIENT Admitting Physician: Michela Davis Condition: STABLE Referrals: MICHELA DAVIS MD (PCP) LEEANN EASLEY MD Jan 16, 2021 09:16
--- NOTE | 2021-01-16 09:41 | RAD ---
Exam Date: 01/16/2021 9:14 AM XR CHEST 1V Indication: Reason: sob / Spl. Instructions: / History: . Comparison December 22, 2020 FINDINGS/ IMPRESSION: Lung volumes remain low, accentuating cardiac silhouette and pulmonary vascularity. The cardiac silhouette is unchanged. Diffuse bilateral lung infiltrates are unchanged. Small pleura l effusion is suspected. No pneumothorax. Electronically signed by: Nicholas Carrillo MD (01/16/2021 9:38 AM) [facility]
[2021-01-16 10:06] LABS: BASO # 0.1 x10^3/uL (0.0-0.2); BASO % 1 % (0-3); EOS % 0 % (0-3); HEMATOCRIT 35.9 % (36.0-47.0); HEMOGLOBIN 11.6 g/dL (12.0-15.5); LYMPH # 0.9 x10^3/uL (1.0-4.8); LYMPH % 7 % (24-48); MEAN CORPUSCULAR HEMOGLOBIN 28 pg (25-35); MEAN CORPUSCULAR HGB CONC 32 g/dL (31-37); MEAN CORPUSCULAR VOLUME 86 fL (79-100); MONO # 1.1 x10^3/uL (0.0-1.1); MONO % 8 % (0-9); NEUT # 10.6 x10^3/uL (1.8-7.7); NEUT % 83 % (31-73); PLATELET COUNT 268 x10^3/uL (140-400); RED BLOOD COUNT 4.19 x10^6/uL (3.50-5.40); RED CELL DISTRIBUTION WIDTH 13.7 % (11.5-14.5); WHITE BLOOD COUNT 12.8 x10^3/uL (4.0-11.0)
[2021-01-16 10:16] LABS: CALCIUM 8.9 mg/dL (8.5-10.1); CREATININE 1.6 mg/dL (0.6-1.0); GFR 32.2
[2021-01-16 10:22] LABS: ALBUMIN 2.8 g/dL (3.4-5.0); ALBUMIN/GLOBULIN RATIO 0.7 (1.0-1.7); TOTAL BILIRUBIN 1.1 mg/dL (0.2-1.0); TOTAL PROTEIN 6.6 g/dL (6.4-8.2)
--- NOTE | 2021-01-16 10:53 | RAD ---
EXAM: Head CT without contrast. HISTORY: Fall. Confusion. TECHNIQUE: Computed tomographic images of the head were obtained without contrast. *One or more of the following individualized dose reduction techniques were utilized for this examina tion: 1. Automated exposure control. 2. Adjustment of the mA and/or kV according to patient size. 3. Use of iterative reconstruction technique. COMPARISON: None. FINDINGS: There is no acute or subacute extra-axial or intraparenchymal hemorrhage. There is no mass effect or midline shift. There is no hydrocephalus. There are areas of decreased attenuation within the cerebral white matter, nonspecific and likely rel ated to chronic small vessel disease. There is a tiny right maxillary sinus mucous retention cyst. The mastoid air cells are clear. The orb its are unremarkable. There is no suspicious calvarial lesion. IMPRESSION: No acute intracranial findings. Electronically signed by: Magdalena Gentile MD (01/16/2021 10:51 AM) [facility]
[2021-01-16] MEDS ORDERED: cefTRIAXone IV Push 1 GM VIAL. IVP ONE (11:45)
--- NOTE | 2021-01-16 12:52 | RAD ---
EXAM: RENAL ULTRASOUND CLINICAL HISTORY: Reason: Acute kidney injury, urinary retention / Spl. Instructions: / History: COMPARISON: None available. TECHNIQUE: Ultrasound examination of the bilateral kidneys and urinary bladder was performed. FINDINGS: The longitudinal and AP and transverse dimensions of the right kidney are 12.7 cm and 6.6 cm and 6.2 cm respectively. The longitudinal and AP and transverse dimensions of the left kidney are 13.4 cm and 7.0 cm and 5.96 respectively. Neither kidney is well visualized due to the patient's larger body habitus. However, no hydronephrosi s or obvious renal mass is seen. No perinephric fluid collection is apparent. Urinary bladder is not visualized and therefore may be empty. IMPRESSION: Difficult exam due to the patient's larger body habitus. No hydronephrosis is evident. Electronically signed by: Alfredo Goldman MD (01/16/2021 12:50 PM) [id number]
[2021-01-16 14:30] VITALS: BP 105/41
[2021-01-16] MEDS ORDERED: CLIN150C16 PO (18:29)
[2021-01-16] MEDS ORDERED: SULF1TAB24 PO (18:29)
[2021-01-16 19:00] VITALS: BP 101/42
[2021-01-16] MEDS: IPRATRPIUM/ALBUTEROL 0.5/2.5MG 3 ML NEBU. NEB SCH (20:00)
[2021-01-16] MEDS: HYDROcodone/APAP 5/325MG 1 TAB TABLET PO PRN (20:44)
[2021-01-16] MEDS: IV NORMAL SALINE 1000ML BAG 1,000 ML IV SCH (20:45)
[2021-01-16] MEDS: FLU VACC QUAD 21-22 (6MOS+) PF 0.5 ML SYRINGE. VAX IM ONE (21:00)
[2021-01-16 22:58] VITALS: BP 98/52
[2021-01-17 03:38] VITALS: BP 94/53
[2021-01-17] MEDS: HYDROcodone/APAP 5/325MG 1 TAB TABLET PO PRN ×3 (03:43→18:06)
[2021-01-17] MEDS: IV NORMAL SALINE 1000ML BAG 1,000 ML IV SCH ×3 (05:08→23:43)
[2021-01-17 07:00] VITALS: BP 114/67
[2021-01-17] MEDS: IPRATRPIUM/ALBUTEROL 0.5/2.5MG 3 ML NEBU. NEB SCH ×4 (07:27→20:33)
[2021-01-17] MEDS: LOSARTAN POTASSIUM 50 MG TABLET. PO SCH (09:19)
[2021-01-17] MEDS: OXYBUTYNIN CHLORIDE 5 MG TABLET PO SCH ×2 (09:19→20:05)
--- NOTE | 2021-01-17 10:48 | NUR ---
SW following. Discussed with RN, pt from home, 2L, regular diet. Pt discharged home with [facility] last admission. Wound care following. Rapid COVID-19 negative. SW will continue to follow.
[2021-01-17 11:00] VITALS: BP 100/52
[2021-01-17] MEDS: cefTRIAXone IV Push 1 GM VIAL. IVP SCH (12:00)
--- NOTE | 2021-01-17 13:59 | HP ---
ADMIT DATE: 01/17/2021 ADMISSION HISTORY AND PHYSICAL HISTORY OF PRESENT ILLNESS: This 65-year-old female presented to the Emergency Room with weakness, essentially no p.o. intake over the last several days, was having hallucinations, urinary frequency, was felt to probably have a urinary tract infection, given a dose of Rocephin and sent to the floor. Today, no urine specimen has been collected and was discussed with nursing this morning to please try to get one. PAST MEDICAL HISTORY: Remarkable for morbid obesity, overactive bladder, hypertension. She has had cellulitis of her lower extremities with edema, has been followed at the wound care center. PAST SURGICAL HISTORY: She has a prior surgical history of cholecystectomy and obstructive sleep apnea. MEDICATIONS: Brought with the patient, listed on the computer and have been addressed. ALLERGIES: She has no known drug allergies. SOCIAL HISTORY: She is a nonsmoker, nondrinker. Does not abuse drugs, is single, lives at home alone. FAMILY HISTORY: Noncontributory. REVIEW OF SYSTEMS: As mentioned above. PHYSICAL EXAMINATION: GENERAL: She is a well-developed, well-nourished, obese white female, no acute distress, lying in bed, but not mentally as sharp as she normally is, which is normally very sharp. VITAL SIGNS: Stable. She is on 4 liters per nasal cannula oxygen. NECK: Supple without adenopathy or thyromegaly. CHEST: Distant breath sounds, but clear. HEART: Regular rate and rhythm. ABDOMEN: Obese without tenderness. EXTREMITIES: With 2+ edema of bilateral lower extremities, some redness of the lower extremities. She does have some redness on her sacrococcygeal area from lying in bed, but no open areas that I can see at this point in time. NEUROLOGIC: She is intact. LABORATORY DATA: Initial laboratory remarkable for white count of 12,800 with a left shift. She has acute kidney injury with creatinine up to 1.6, which is higher than her baseline. Albumin is low at 2.8. COVID screening is negative. She has had a chest x-ray, which is unchanged from prior. Head CT that showed no acute changes. Renal ultrasound was difficult exam due to her large body habitus with no hydronephrosis seen. IMPRESSION: Acute weakness, anorexia, dehydration, acute kidney injury, possible urinary tract infection. PLAN: Hydration. Follow kidney function. Continue IV Rocephin. Urine culture. BAA/SUM/MADISON DR: Annmarie TID: [id number]
[2021-01-17 15:11] VITALS: BP 95/42
--- NOTE | 2021-01-17 17:27 | NUR ---
Wound/Ostomy Care Wound Type/Assessment: Wound care consult for bilateral posterior thighs maceration and shearing and lower back unstageable PU. Groin is red and moist, cleansed and pat dry, ostomy powder applied and chucks cut in thirds applied to fold for moisture control. Bilateral lower legs are pink and swollen but no open wounds noted, medigrips size G applied for compression and to help with swelling. Pt is known to wound care from outpatient clinic. POC explained to pt and to ALINA Gauthier. Treatment Recommendations/Plan: Cleanse all wounds with saline or wound wash and pat dry. Bilateral posterior thighs: apply A&D ointment bid and prn Lower back: apply honey alginate and foam, change every 2-3 days and prn Groin area/abdominal folds: apply ostomy powder and chucks for moisture control, change bid and prn. Education provided: pt educated on PU prevention and healing, leg elevation for swelling Offloading surface/device: bariatric bed, purple wedge, pillows to offload Recommended Referrals/Tests: n/a Discharge Recommendations for dressings: same as above, pt may follow up in outpatient clinic after discharge from hospital for lower back PU [phone]. Wound care will follow up on 01/24/21
[2021-01-17] MEDS: CALCIUM CARBONATE 500 MG TAB.CHEW PO PRN (18:09)
[2021-01-17 19:00] VITALS: BP 77/50
[2021-01-17 23:00] VITALS: BP 102/52
[2021-01-18 03:00] VITALS: BP 103/47
[2021-01-18 07:00] VITALS: BP 124/68
[2021-01-18] MEDS: IPRATRPIUM/ALBUTEROL 0.5/2.5MG 3 ML NEBU. NEB SCH ×4 (07:53→20:31)
--- NOTE | 2021-01-18 08:19 | PN ---
DATE: 01/18/2021 LOCATION: She is in room 578. SUBJECTIVE: This 65-year-old female remains hospitalized with dehydration, acute kidney injury, likely urinary tract infection, hallucinations and anorexia as well as poor oral intake. She does state that the hallucinations have stopped. She is taking some food and water, which she was not prior to admission. She is very weak however. OBJECTIVE: VITAL SIGNS: Stable. She is afebrile. GENERAL: She is awake and alert. CHEST: Decreased breath sounds, but clear. HEART: Regular. ABDOMEN: Obese and benign. EXTREMITIES: Extremities are the same. We will recheck kidney function in the morning with hydration and expect improvement. We will start therapy today. LABORATORY DATA: No urine has resulted yet and at this point, probably is not important as she is over 2 days on antibiotics at this point in time. IMPRESSION: Weakness with acute kidney injury, dehydration, probable urinary tract infection. PLAN: Continue present antibiotics, begin to mobilize, repeat renal function in the morning and decide at that point in time towards discharge planning. DONNA DR: Annmarie TID: [id number]
[2021-01-18] MEDS: LOSARTAN POTASSIUM 50 MG TABLET. PO SCH (09:04)
[2021-01-18] MEDS: OXYBUTYNIN CHLORIDE 5 MG TABLET PO SCH ×2 (09:04→21:50)
[2021-01-18] MEDS: CALCIUM CARBONATE 500 MG TAB.CHEW PO PRN ×2 (09:06→21:55)
[2021-01-18 11:00] VITALS: BP 103/55
[2021-01-18] MEDS: cefTRIAXone IV Push 1 GM VIAL. IVP SCH (12:53)
[2021-01-18] MEDS: HYDROcodone/APAP 5/325MG 1 TAB TABLET PO PRN ×2 (13:03→21:50)
[2021-01-18] MEDS: IV NORMAL SALINE 1000ML BAG 1,000 ML IV SCH ×2 (13:03→21:50)
[2021-01-18 15:00] VITALS: BP 102/53
[2021-01-18 19:00] VITALS: BP 104/56
[2021-01-18] MEDS: LACTOBACILLUS RHAMNOSUS GG 1 CAPSULE. PO SCH (21:50)
[2021-01-18 23:00] VITALS: BP 106/48
[2021-01-19 03:00] VITALS: BP 136/85
[2021-01-19] MEDS: IV NORMAL SALINE 1000ML BAG 1,000 ML IV SCH ×2 (04:59→17:28)
[2021-01-19 07:00] VITALS: BP 128/85
[2021-01-19] MEDS: IPRATRPIUM/ALBUTEROL 0.5/2.5MG 3 ML NEBU. NEB SCH ×4 (07:27→20:00)
[2021-01-19 07:51] LABS: BLOOD UREA NITROGEN 14 mg/dL (7-20); CALCIUM 8.5 mg/dL (8.5-10.1); CARBON DIOXIDE 38 mmol/L (21-32); CHLORIDE 104 mmol/L (98-107); CREATININE 0.7 mg/dL (0.6-1.0); GFR 83.5; GLUCOSE 109 mg/dL (70-99); POTASSIUM 4.7 mmol/L (3.5-5.1); SODIUM 140 mmol/L (136-145)
--- NOTE | 2021-01-19 09:13 | PN ---
DATE: 01/19/2021 DAILY PROGRESS NOTE LOCATION: She is in room 578. SUBJECTIVE: This 65-year-old female remains hospitalized with dehydration, acute kidney injury, likely urinary tract infection, hallucinations, anorexia, poor oral intake. States she still is having a little bit of hallucinatory type stuff. Still feels completely worn out and fatigued. She is drinking some water at this point in time. Also admits to some increased wheezing over the last 24 hours. OBJECTIVE: VITAL SIGNS: Stable. She is afebrile. GENERAL: She is awake, alert. CHEST: Reveals decreased breath sounds with occasional wheeze. HEART: Regular. ABDOMEN: Obese and benign. LABORATORY AND DIAGNOSTIC DATA: AM labs are pending as far as recheck of kidney function. I am going to ask Neurology to visit regarding the ongoing hallucinatory type activity. IMPRESSION: Weakness with acute kidney injury, dehydration and probable urinary tract infection. PLAN: Continue present antibiotics. Continue therapy. Therapy plan is acute rehab at discharge. We will see what renal function is this morning as well as Neurology thoughts with continued supportive care. DAE DR: Annmarie TID: [id number]
[2021-01-19] MEDS: HYDROcodone/APAP 5/325MG 1 TAB TABLET PO PRN ×2 (09:18→14:49)
[2021-01-19] MEDS: OXYBUTYNIN CHLORIDE 5 MG TABLET PO SCH ×2 (09:18→22:15)
[2021-01-19] MEDS: LOSARTAN POTASSIUM 50 MG TABLET. PO SCH (09:18)
[2021-01-19] MEDS: LACTOBACILLUS RHAMNOSUS GG 1 CAPSULE. PO SCH ×2 (09:18→22:15)
[2021-01-19] MEDS: CALCIUM CARBONATE 500 MG TAB.CHEW PO PRN ×2 (09:24→17:27)
[2021-01-19 11:00] VITALS: BP 101/59
--- NOTE | 2021-01-19 14:10 | PDOC2 ---
NEUROLOGY CONSULT Date of Service DOS: DATE: 01/19/21 TIME: 14:01 Reason for Consult Reason for Consult: Hallucinations Referring Physician Referring Physician: Dr. Davis Source Source: Chart review, Patient History of Present Illness History of Present Illness The patient is a 65-year-old right-handed female admitted 2 days ago with weakness, poor oral intake, possible urinary tract infection, and hallucinations. She has formed visual hallucinations. She is aware that they are not real. She sees her self sitting at a table reading a book. She has no history of stroke, seizure, head injury, depression, other psychiatric issues, visual disturbances. She was recently here with cellulitis. Past Medical History Cardiovascular: CHF, Pulmonary hypertension (Cor pulmonale) Pulmonary: Other (Sleep apnea) Musculoskeletal: Osteoarthritis Renal/: Urinary Incontinence Endocrine: Other (Morbid obesity) Dermatology: Cellulitis (Decubiti) Past Surgical History Past Surgical History: Cholecystectomy Family History Family History: Cancer Social History Social History Single, no alcohol or tobacco Current Medications Current Medications Current Medications Sodium Chloride 500 ml @ 500 mls/hr 1X ONCE IV Last administered on 01/16/21at 09:30; Start 01/16/21 at 09:15; Stop 01/16/21 at 10:14; Status DC Ceftriaxone Sodium (Rocephin) 1 gm 1X ONCE IVP Last administered on 01/16/21at 13:56; Start 01/16/21 at 11:45; Stop 01/16/21 at 11:46; Status DC Sodium Chloride 1,000 ml @ 100 mls/hr Q10H IV Last administered on 01/19/21at 04:59; Start 01/16/21 at 18:30 Ceftriaxone Sodium (Rocephin) 1 gm Q24H IVP Last administered on 01/18/21at 12:53; Start 01/17/21 at 12:00 Acetaminophen/ Hydrocodone Bitart (Lortab 5/325) 1 tab PRN Q6HRS PRN PO PAIN Last administered on 01/19/21at 09:18; Start 01/16/21 at 18:30 Albuterol/ Ipratropium (Duoneb) 3 ml RTQID NEB Last administered on 01/19/21at 11:22; Start 01/16/21 at 20:00 Losartan Potassium (Cozaar) 50 mg DAILY PO Last administered on 01/19/21at 09:18; Start 01/17/21 at 09:00 Oxybutynin Chloride (Ditropan) 5 mg BID PO Last administered on 01/19/21at 09:18; Start 01/17/21 at 09:00 Influenza Virus Vaccine Quadrival (Flulaval Quad Syringe) 0.5 ml ONCE ONCE VAX IM ; Start 01/16/21 at 21:00; Stop 01/16/21 at 21:01; Status DC Calcium Carbonate/ Glycine (Tums) 1,000 mg TIDAC PRN PO INDIGESTION Last administered on 01/19/21at 09:24; Start 01/17/21 at 13:45 Lactobacillus Rhamnosus (Culturelle) 1 cap BID PO Last administered on 01/19/21at 09:18; Start 01/18/21 at 21:00 Active Scripts Active Duoneb 0.5-3(2.5) Mg/3 Ml (Albuterol/Ipratropium) 3 Ml Ampul.neb 3 Ml NEB RTQID 30 Days Hydrocodone-Acetamin 5-325 mg (Hydrocodone/Acetaminophen) 1 Each Tablet 1 Each PO Q6HRS PRN Furosemide 40 Mg Tablet 40 Mg PO BID94 30 Days Reported Bactrim Ds Tablet (Sulfamethoxazole/Trimethoprim) 1 Each Tablet 1 Tab PO BID 10 Days Clindamycin Hcl 150 Mg Capsule 1 Cap PO QID Irbesartan 150 Mg Tablet 150 Mg PO DAILY Oxybutynin Chloride Er (Oxybutynin Chloride) 10 Mg Tab.er.24 10 Mg PO DAILY Allergies Allergies: Coded Allergies: No Known Drug Allergies (Unverified , 12/14/20) ROS Review of System Negative for fever, chills, weight loss, shortness of breath, chest pain, indigestion, hematochezia, melena, and dysuria. Full 14-point review of systems is negative. Physical Exam Physical Examination General: Well-developed, well-nourished obese white female in no acute distress HEENT: Normocephalic andatraumatic. Temporal arteriespulsatile and nontender. Neck: Supple without bruit, no meningismus Musculoskeletal: Stability:see neurologic. Gait exam:see neurologic. Tone:see neurologic.Strength:see neurologic. Neurological: Mental Status:intact, orientation, memory, attention span/concentration, language, fund of knowledge normal. Cranial Nerves:Pupils equal and reactive to light, extraocular movements areintact, visual de leon are full to confrontation. Facial sensation is normal. There is no facial asymmetry. Vestibulo-ocular reflex is intact. Palate elevates and tongue protrudes in midline. All other cranial related problems are negative except as mentioned before.Reflexes:2+ and symmetric with flexor plantar responses. Motor:5/5 strength with normal tone and bulk. Coordination:Finger-nose finger and ndlu-ro-ffjo testing are normal. Rapid alternating movements and fine finger movements are intact. Gait:Normal, including tandem. Sensory:Normal pinprick, vibration, light touch, proprioception. Vitals VITALS Vital Signs Date Time Temp Pulse Resp B/P (MAP) Pulse Ox O2 Delivery O2 Flow Rate FiO2 01/19/21 11:22 95 Nasal Cannula 2.0 01/19/21 11:00 97.5 92 20 101/59 (73) 97.5 Labs Labs Laboratory Tests Test 01/19/21 07:30 Sodium Level 140 mmol/L (136-145) Potassium Level 4.7 mmol/L (3.5-5.1) Chloride Level 104 mmol/L (98-107) Carbon Dioxide Level 38 mmol/L (21-32) Anion Gap (6-14) Blood Urea Nitrogen 14 mg/dL (7-20) Creatinine 0.7 mg/dL (0.6-1.0) Estimated GFR (Cockcroft-Gault) 83.5 Glucose Level 109 mg/dL (70-99) Calcium Level 8.5 mg/dL (8.5-10.1) Laboratory Tests Test 01/19/21 07:30 Sodium Level 140 mmol/L (136-145) Potassium Level 4.7 mmol/L (3.5-5.1) Chloride Level 104 mmol/L (98-107) Carbon Dioxide Level 38 mmol/L (21-32) Anion Gap (6-14) Blood Urea Nitrogen 14 mg/dL (7-20) Creatinine 0.7 mg/dL (0.6-1.0) Estimated GFR (Cockcroft-Gault) 83.5 Glucose Level 109 mg/dL (70-99) Calcium Level 8.5 mg/dL (8.5-10.1) Images Images Head CT without contrast., 01/16: There is no acute or subacute extra-axial or intraparenchymal hemorrhage. There is no mass effect or midline shift. There is no hydrocephalus. There are areas of decreased attenuation within the cerebral white matter, nonspecific and likely related to chronic small vessel disease. There is a tiny right maxillary sinus mucous retention cyst. The mastoid air cells are clear. The orbits are unremarkable. There is no suspicious calvarial lesion. IMPRESSION: No acute intracranial findings. Assessment/Plan Assessment/Plan Impression: Hallucinations, most likely combination of sleep deprivation, narcotic analgesics, antibiotics, infection. I find no evidence of seizures, primary psychiatric disease, central nervous system infection, stroke. She is on Rocephin for a presumed urinary tract infection, there is still no culture or urinalysis on the chart. At admission she also had leukocytosis, hyperbilirubinemia, mild renal insuff iciency, mild transaminitis Recommendations: Patient is only rarely having these hallucinations and is not troubled by them, therefore we will hold off on treatment such as antipsychotics. No need for additional neurological studies at this time Treat medical issues Thank you for letting me help with the patient's care. KRISTIN GOFF MD Jan 19, 2021 14:10
[2021-01-19] MEDS: cefTRIAXone IV Push 1 GM VIAL. IVP SCH (14:49)
[2021-01-19 15:00] VITALS: BP 144/113
[2021-01-19 19:00] VITALS: BP 95/39
[2021-01-19 23:24] VITALS: BP 105/64
[2021-01-20] MEDS: IV NORMAL SALINE 1000ML BAG 1,000 ML IV SCH (02:30)
[2021-01-20 03:07] VITALS: BP 116/57
[2021-01-20 07:00] VITALS: BP 122/75
[2021-01-20] MEDS: IPRATRPIUM/ALBUTEROL 0.5/2.5MG 3 ML NEBU. NEB SCH ×4 (07:41→19:45)
[2021-01-20] MEDS: OXYBUTYNIN CHLORIDE 5 MG TABLET PO SCH ×2 (07:43→22:13)
[2021-01-20] MEDS: CALCIUM CARBONATE 500 MG TAB.CHEW PO PRN ×3 (07:43→18:27)
[2021-01-20] MEDS: LACTOBACILLUS RHAMNOSUS GG 1 CAPSULE. PO SCH ×3 (07:43→22:13)
[2021-01-20] MEDS: LOSARTAN POTASSIUM 50 MG TABLET. PO SCH (07:44)
--- NOTE | 2021-01-20 08:57 | PN ---
DATE: 01/20/2021 DAILY PROGRESS NOTE LOCATION: She is in room 578. SUBJECTIVE: This 65-year-old female remains hospitalized with dehydration; acute kidney injury, likely urinary tract infection; hallucinations; anorexia and poor oral intake. She at this point feels like hallucinations may be related to the pain pills as she feels they are quite a bit better. She is taking stuff and better p.o. at this point. She still has major mobility deficits. OBJECTIVE: VITAL SIGNS: Stable. She is afebrile. GENERAL: She is awake and alert. CHEST: Distant breath sounds. HEART: Regular. ABDOMEN: Obese and benign. LABORATORY DATA: Creatinine yesterday has returned to normal with acute kidney injury, resolving. Neurology has seen her. IMPRESSION: 1. Weakness with acute kidney injury related to likely dehydration, probably urinary tract infection with decreased p.o. intake, improved. 2. Mobility deficits. PLAN: Discontinue IV antibiotics. She is complaining of her skin feeling kind of all over her body when she scratches, it is not feeling the same left arm numbness and some difficulties getting her water bottle with the left hand. She does have a [employer], although it is slightly decreased. I am going to check a CT neck before she is out of here to make sure something did not happen there with this last fall. We are awaiting for SNU approval at this point and she will be ready for discharge. MARIO/OVIDIO/MADISON DR: MARIO/ghanshyam TID: [id number]
[2021-01-20] MEDS: HYDROcodone/APAP 5/325MG 1 TAB TABLET PO PRN ×2 (10:14→18:27)
--- NOTE | 2021-01-20 10:25 | PDOC ---
PROGRESS NOTES Date of Service DATE: 01/20/21 TIME: 10:22 Assessment Problems Medical Problems: (1) BARBARA (acute kidney injury) Status: Acute (2) Delirium Status: Acute Hallucinations, patient thinks they are mainly from the hydrocodone, they are better when she omits it. Also could be due to sleep deprivation, antibiotics, infection. At admission she also had leukocytosis, hyperbilirubinemia, mild renal insufficiency, mild transaminitis Plan Counseled patient that if she has bad enough pain she can use Lortab and just put up with the hallucinations But I would not add on an antipsychotic for these No need for additional neurological studies at this time Neurology will follow at intervals Subjective Hallucinations much better, may have had one last night, she is fairly certain the Lortab is causing them Objective Vital Signs Date Time Temp Pulse Resp B/P (MAP) Pulse Ox O2 Delivery O2 Flow Rate FiO2 01/20/21 10:14 20 98 Nasal Cannula 2.0 01/20/21 07:44 91 122/75 01/20/21 07:00 97.6 97.6 Intake and Output 01/20/21 07:00 Intake Total 600 ml Output Total 800 ml Balance -200 ml Intake Oral 600 ml Output Urine Total 800 ml PHYSICAL EXAM Alert. Oriented to time, place and person. PERRL. EOMI. CN: no focal findings. Muscle tone: normal. Muscle strength: 4/5 DTR: 1+ Plantar reflex: Flexor Gait: not examined in bed. Sensory exam: no abnormal findings. No cerebellar signs elicited. Review of Relevant I have reviewed the following items gi (where applicable) has been applied. Labs Laboratory Tests Test 01/19/21 07:30 Sodium Level 140 mmol/L (136-145) Potassium Level 4.7 mmol/L (3.5-5.1) Chloride Level 104 mmol/L (98-107) Carbon Dioxide Level 38 mmol/L (21-32) Anion Gap (6-14) Blood Urea Nitrogen 14 mg/dL (7-20) Creatinine 0.7 mg/dL (0.6-1.0) Estimated GFR (Cockcroft-Gault) 83.5 Glucose Level 109 mg/dL (70-99) Calcium Level 8.5 mg/dL (8.5-10.1) Medications Current Medications Sodium Chloride 500 ml @ 500 mls/hr 1X ONCE IV Last administered on 01/16/21at 09:30; Start 01/16/21 at 09:15; Stop 01/16/21 at 10:14; Status DC Ceftriaxone Sodium (Rocephin) 1 gm 1X ONCE IVP Last administered on 01/16/21at 13:56; Start 01/16/21 at 11:45; Stop 01/16/21 at 11:46; Status DC Sodium Chloride 1,000 ml @ 100 mls/hr Q10H IV Last administered on 01/20/21at 02:30; Start 01/16/21 at 18:30; Stop 01/20/21 at 07:27; Status DC Ceftriaxone Sodium (Rocephin) 1 gm Q24H IVP Last administered on 01/19/21at 14:49; Start 01/17/21 at 12:00 Acetaminophen/ Hydrocodone Bitart (Lortab 5/325) 1 tab PRN Q6HRS PRN PO PAIN Last administered on 01/20/21at 10:14; Start 01/16/21 at 18:30 Albuterol/ Ipratropium (Duoneb) 3 ml RTQID NEB Last administered on 01/20/21 07:41; Start 01/16/21 at 20:00 Losartan Potassium (Cozaar) 50 mg DAILY PO Last administered on 01/20/21 07:44; Start 01/17/21 at 09:00 Oxybutynin Chloride (Ditropan) 5 mg BID PO Last administered on 01/20/21 07:43; Start 01/17/21 at 09:00 Influenza Virus Vaccine Quadrival (Flulaval Quad [id number] Syringe) 0.5 ml ONCE ONCE VAX IM ; Start 01/16/21 at 21:00; Stop 01/16/21 at 21:01; Status DC Calcium Carbonate/ Glycine (Tums) 1,000 mg TIDAC PRN PO INDIGESTION Last administered on 01/20/21 07:43; Start 01/17/21 at 13:45 Lactobacillus Rhamnosus (Culturelle) 1 cap BID PO Last administered on 01/20/21at 07:43; Start 01/18/21 at 21:00 Active Scripts Active Duoneb 0.5-3(2.5) Mg/3 Ml (Albuterol/Ipratropium) 3 Ml Ampul.neb 3 Ml NEB RTQID 30 Days Hydrocodone-Acetamin 5-325 mg (Hydrocodone/Acetaminophen) 1 Each Tablet 1 Each PO Q6HRS PRN Furosemide 40 Mg Tablet 40 Mg PO BID94 30 Days Reported Bactrim Ds Tablet (Sulfamethoxazole/Trimethoprim) 1 Each Tablet 1 Tab PO BID 10 Days Clindamycin Hcl 150 Mg Capsule 1 Cap PO QID Irbesartan 150 Mg Tablet 150 Mg PO DAILY Oxybutynin Chloride Er (Oxybutynin Chloride) 10 Mg Tab.er.24 10 Mg PO DAILY Vitals/I & O Vital Sign - Last 24 Hours 01/19/21 01/19/21 01/19/21 01/19/21 11:00 11:22 14:49 15:00 Temp 97.5 97.7 97.5 97.7 Pulse 92 68 Resp 20 18 18 B/P (MAP) 101/59 (73) 144/113 (123) Pulse Ox 93 95 96 O2 Delivery Room Air Nasal Cannula Room Air Room Air O2 Flow Rate 2.0 01/19/21 01/19/21 01/19/21 01/19/21 15:19 15:20 19:00 20:15 Temp 98.1 98.1 Pulse 89 Resp 18 20 B/P (MAP) 95/39 (57) Pulse Ox 97 O2 Delivery Nasal Cannula Nasal Cannula Room Air Nasal Cannula O2 Flow Rate 2.0 2.0 2.0 01/19/21 01/19/21 01/20/21 01/20/21 20:56 23:24 03:07 07:00 Temp 97.7 98.2 97.6 97.7 98.2 97.6 Pulse 94 97 90 Resp 18 18 18 B/P (MAP) 105/64 (78) 116/57 (76) 122/75 (91) Pulse Ox 95 92 94 91 O2 Delivery Nasal Cannula Room Air Room Air Room Air O2 Flow Rate 2.0 01/20/21 01/20/21 01/20/21 07:41 07:44 10:14 Pulse 91 Resp 20 B/P (MAP) 122/75 Pulse Ox 98 98 O2 Delivery Nasal Cannula Nasal Cannula O2 Flow Rate 2.0 2.0 Intake and Output 01/19/21 01/19/21 01/20/21 15:00 23:00 07:00 Intake Total 300 ml 300 ml Output Total 800 ml Balance 300 ml -500 ml Justicifation of Admission Dx: Justifications for Admission: Justification of Admission Dx: Yes KRISTIN GOFF MD Jan 20, 2021 10:25
[2021-01-20 11:00] VITALS: BP 127/93
[2021-01-20] MEDS: cefTRIAXone IV Push 1 GM VIAL. IVP SCH (11:38)
--- NOTE | 2021-01-20 11:53 | RAD ---
CT CERVICAL SPINE WO History:Reason: arm numbness / Spl. Instructions: / History: Technique: Noncontrast CT imaging was performed of the cervical spine. Multiplanar images are reviewe d. Exposure: One or more of the following individualized dose reduction techniques were utilized for thi s examination: 1. Automated exposure control 2. Adjustment of the mA and/or kV according to patient size 3. Use of iterative reconstruction technique. Comparison: None Findings: Degraded evaluation due to patient body habitus and technique. Subacute left posterior third and acute appearing fourth rib fractures. Straightening of the normal cervical lordosis. Normal vertebral body height. No acute fracture. Moderate multilevel degenerative disc changes. No high-grade canal stenosis. Multilevel neuroforamina l narrowing. Facet arthropathy. Soft tissues unremarkable. Impression: 1. No acute fracture or subluxation of the cervical spine. 2. Acute appearing left posterior fourth rib fracture and subacute left posterior third rib fracture . 3. Moderate multilevel cervical spondylosis. Electronically signed by: Berny Mariee DO (01/20/2021 11:50 AM) [id number]
[2021-01-20 15:00] VITALS: BP 115/84
[2021-01-20 19:00] VITALS: BP 141/45
[2021-01-20 23:00] VITALS: BP 123/54
[2021-01-21 03:26] VITALS: BP 125/76
[2021-01-21] MEDS: CALCIUM CARBONATE 500 MG TAB.CHEW PO PRN ×3 (05:52→21:49)
[2021-01-21 07:00] VITALS: BP 133/63
[2021-01-21] MEDS: IPRATRPIUM/ALBUTEROL 0.5/2.5MG 3 ML NEBU. NEB SCH ×4 (07:47→20:40)
[2021-01-21] MEDS: OXYBUTYNIN CHLORIDE 5 MG TABLET PO SCH ×2 (09:37→21:50)
[2021-01-21] MEDS: HYDROcodone/APAP 5/325MG 1 TAB TABLET PO PRN ×2 (09:37→21:50)
[2021-01-21] MEDS: LOSARTAN POTASSIUM 50 MG TABLET. PO SCH (09:38)
--- NOTE | 2021-01-21 10:43 | PN ---
DATE: 01/21/2021 LOCATION: She is in room 578. SUBJECTIVE: This 65-year-old female remains hospitalized with altered mental status, weakness, hallucinations, acute kidney injury, likely due to urinary tract infection on admission. She is improving daily. We are awaiting some sort of a halfway placement at this point in time. OBJECTIVE: VITAL SIGNS: Stable. She is afebrile. GENERAL: She is awake and alert. CHEST: Clear. HEART: Regular. ABDOMEN: Obese and benign. EXTREMITIES: Stable. RENAL: Kidney function has improved. IMPRESSION: 1. Urinary tract infection with altered mental status, weakness, inability to do self-care. 2. Acute kidney injury, improved. PLAN: Continue present care. At this point, halfway is the plan. USHA DR: Annmarie TID: [id number]
[2021-01-21 11:00] VITALS: BP 131/49
[2021-01-21 15:00] VITALS: BP 128/52
[2021-01-21 19:30] VITALS: BP 143/68
[2021-01-21] MEDS: LACTOBACILLUS RHAMNOSUS GG 1 CAPSULE. PO SCH (21:50)
[2021-01-21 23:00] VITALS: BP 132/72
[2021-01-22 04:15] VITALS: BP 153/75
[2021-01-22] MEDS: IPRATRPIUM/ALBUTEROL 0.5/2.5MG 3 ML NEBU. NEB SCH ×4 (06:27→20:11)
[2021-01-22 07:00] VITALS: BP 118/65
[2021-01-22] MEDS: LACTOBACILLUS RHAMNOSUS GG 1 CAPSULE. PO SCH ×2 (07:45→21:59)
[2021-01-22] MEDS: CALCIUM CARBONATE 500 MG TAB.CHEW PO PRN ×2 (07:45→16:17)
[2021-01-22] MEDS: OXYBUTYNIN CHLORIDE 5 MG TABLET PO SCH ×2 (07:46→22:00)
[2021-01-22] MEDS: LOSARTAN POTASSIUM 50 MG TABLET. PO SCH (07:46)
[2021-01-22 11:00] VITALS: BP 137/71
--- NOTE | 2021-01-22 11:31 | PN ---
DATE: 01/22/2021 LOCATION: She is in room 578. SUBJECTIVE: This 65-year-old female remains hospitalized with altered mental status, weakness, hallucinations, acute kidney injury, likely due to urinary tract infection on admission. She is improving. We are waiting on discharge destination for ongoing therapy. OBJECTIVE: VITAL SIGNS: Stable. She is afebrile. GENERAL: She is awake and alert. CHEST: Clear. HEART: Regular. ABDOMEN: Obese and benign. Acute kidney injury has resolved. CT scanning of the neck a couple of days ago showed no acute changes. So the numbness that she is experiencing, I do not believe is related to something in the neck. IMPRESSION: 1. Urinary tract infection with mental status, improving. 2. Weakness with inability to self-care. We will need therapy. 3. Acute kidney injury, resolved. PLAN: Continue present care with rehabilitation destination to be determined. DONNA DR: Annmarie TID: [id number]
[2021-01-22 15:00] VITALS: BP 131/68
[2021-01-22] MEDS: HYDROcodone/APAP 5/325MG 1 TAB TABLET PO PRN ×2 (16:17→22:00)
[2021-01-22 19:00] VITALS: BP 104/51
[2021-01-22 22:38] VITALS: BP 109/48
[2021-01-23 02:44] VITALS: BP 135/72
[2021-01-23] MEDS: IPRATRPIUM/ALBUTEROL 0.5/2.5MG 3 ML NEBU. NEB SCH ×3 (06:13→15:24)
[2021-01-23 07:15] VITALS: BP 121/76
[2021-01-23] MEDS ORDERED: VITS A & D/LANOLIN TOPICAL OINTMENT 42GM TUBE. TP SCH (09:00)
[2021-01-23] MEDS: LACTOBACILLUS RHAMNOSUS GG 1 CAPSULE. PO SCH (09:00)
[2021-01-23] MEDS: OXYBUTYNIN CHLORIDE 5 MG TABLET PO SCH (09:19)
[2021-01-23] MEDS: CALCIUM CARBONATE 500 MG TAB.CHEW PO PRN ×2 (09:20→12:34)
[2021-01-23] MEDS: HYDROcodone/APAP 5/325MG 1 TAB TABLET PO PRN ×2 (09:20→17:39)
[2021-01-23] MEDS: LOSARTAN POTASSIUM 50 MG TABLET. PO SCH (09:21)
--- NOTE | 2021-01-23 09:58 | PDOC ---
PROGRESS NOTES Date of Service DATE: 01/23/21 TIME: 09:56 Assessment Problems Medical Problems: (1) BARBARA (acute kidney injury) Status: Acute (2) Delirium Status: Acute Hallucinations, patient thinks they are mainly from the hydrocodone, they are better when she omits it. Also could be due to sleep deprivation, antibiotics, infection. She has had none in the past couple days At admission she also had leukocytosis, hyperbilirubinemia, mild renal insufficiency, mild transaminitis Plan Counseled patient that if she has bad enough pain she can use Lortab and just put up with the hallucinations But I would not add on an antipsychotic for these No need for additional neurological studies at this time Neurology will follow at intervals Awaiting placement Subjective No complaints Objective Vital Signs Date Time Temp Pulse Resp B/P (MAP) Pulse Ox O2 Delivery O2 Flow Rate FiO2 01/23/21 09:21 96 121/76 01/23/21 09:20 18 Nasal Cannula 2.0 01/23/21 07:15 97.8 93 97.8 Intake and Output 01/23/21 07:00 Output Total 1400 ml Balance -1400 ml Output Urine Total 1400 ml # Voids 3 PHYSICAL EXAM Alert. Oriented to time, place and person. PERRL. EOMI. CN: no focal findings. Muscle tone: normal. Muscle strength: 4/5 DTR: 1+ Plantar reflex: Flexor Gait: not examined in bed. Sensory exam: no abnormal findings. No cerebellar signs elicited. Review of Relevant I have reviewed the following items gi (where applicable) has been applied. Medications Current Medications Sodium Chloride 500 ml @ 500 mls/hr 1X ONCE IV Last administered on 01/16/21at 09:30; Start 01/16/21 at 09:15; Stop 01/16/21 at 10:14; Status DC Ceftriaxone Sodium (Rocephin) 1 gm 1X ONCE IVP Last administered on 01/16/21at 13:56; Start 01/16/21 at 11:45; Stop 01/16/21 at 11:46; Status DC Sodium Chloride 1,000 ml @ 100 mls/hr Q10H IV Last administered on 01/20/21at 02:30; Start 01/16/21 at 18:30; Stop 01/20/21 at 07:27; Status DC Ceftriaxone Sodium (Rocephin) 1 gm Q24H IVP Last administered on 01/20/21at 11:38; Start 01/17/21 at 12:00; Stop 01/20/21 at 17:14; Status DC Acetaminophen/ Hydrocodone Bitart (Lortab 5/325) 1 tab PRN Q6HRS PRN PO PAIN Last administered on 01/23/21at 09:20; Start 01/16/21 at 18:30 Albuterol/ Ipratropium (Duoneb) 3 ml RTQID NEB Last administered on 01/23/21at 06:13; Start 01/16/21 at 20:00 Losartan Potassium (Cozaar) 50 mg DAILY PO Last administered on 01/23/21at 09:21; Start 01/17/21 at 09:00 Oxybutynin Chloride (Ditropan) 5 mg BID PO Last administered on 01/23/21at 09:19; Start 01/17/21 at 09:00 Influenza Virus Vaccine Quadrival (Flulaval Quad [id number] Syringe) 0.5 ml ONCE ONCE VAX IM ; Start 01/16/21 at 21:00; Stop 01/16/21 at 21:01; Status DC Calcium Carbonate/ Glycine (Tums) 1,000 mg TIDAC PRN PO INDIGESTION Last administered on 01/23/21at 09:20; Start 01/17/21 at 13:45 Lactobacillus Rhamnosus (Culturelle) 1 cap BID PO Last administered on 01/22/21at 21:59; Start 01/18/21 at 21:00 Vitamin A/Vitamin D (Vitamin A & D Ointment) 1 erin BID TP ; Start 01/23/21 at 09:00 Active Scripts Active Duoneb 0.5-3(2.5) Mg/3 Ml (Albuterol/Ipratropium) 3 Ml Ampul.neb 3 Ml NEB RTQID 30 Days Hydrocodone-Acetamin 5-325 mg (Hydrocodone/Acetaminophen) 1 Each Tablet 1 Each PO Q6HRS PRN Furosemide 40 Mg Tablet 40 Mg PO BID94 30 Days Reported Bactrim Ds Tablet (Sulfamethoxazole/Trimethoprim) 1 Each Tablet 1 Tab PO BID 10 Days Clindamycin Hcl 150 Mg Capsule 1 Cap PO QID Irbesartan 150 Mg Tablet 150 Mg PO DAILY Oxybutynin Chloride Er (Oxybutynin Chloride) 10 Mg Tab.er.24 10 Mg PO DAILY Vitals/I & O Vital Sign - Last 24 Hours 01/22/21 01/22/21 01/22/21 01/22/21 11:00 12:04 15:00 15:40 Temp 97.8 97.7 97.8 97.7 Pulse 88 85 Resp 18 20 B/P (MAP) 137/71 (93) 131/68 (89) Pulse Ox 94 94 95 97 O2 Delivery Nasal Cannula Nasal Cannula Nasal Cannula Nasal Cannula O2 Flow Rate 2.0 2.0 2.0 2.0 01/22/21 01/22/21 01/22/21 01/22/21 16:17 16:47 19:00 20:13 Temp 97.5 97.5 Pulse 89 Resp 18 18 18 B/P (MAP) 104/51 (68) Pulse Ox 94 97 O2 Delivery Nasal Cannula Nasal Cannula Nasal Cannula Nasal Cannula O2 Flow Rate 2.0 2.0 2.0 2.0 01/22/21 01/22/21 01/22/21 01/22/21 20:30 22:00 22:30 22:38 Temp 97.9 97.9 Pulse 93 Resp 20 20 18 B/P (MAP) 109/48 (68) Pulse Ox 93 O2 Delivery Nasal Cannula Nasal Cannula Nasal Cannula Nasal Cannula O2 Flow Rate 2.0 2.0 3.0 3.0 01/23/21 01/23/21 01/23/21 01/23/21 02:44 06:13 07:15 09:20 Temp 98.0 97.8 98.0 97.8 Pulse 87 96 Resp 18 22 18 B/P (MAP) 135/72 (93) 121/76 (91) Pulse Ox 96 97 93 O2 Delivery Nasal Cannula Nasal Cannula Nasal Cannula Nasal Cannula O2 Flow Rate 2.0 2.0 2.0 2.0 01/23/21 09:21 Pulse 96 B/P (MAP) 121/76 Intake and Output 01/22/21 01/22/21 01/23/21 15:00 23:00 07:00 Output Total 1000 ml 400 ml Balance -1000 ml -400 ml Justicifation of Admission Dx: Justifications for Admission: Justification of Admission Dx: Yes KRISTIN GOFF MD Jan 23, 2021 09:58
[2021-01-23 10:56] VITALS: BP 135/75
[2021-01-23 14:50] VITALS: BP 129/70
--- NOTE | 2021-01-23 16:50 | SNU/HH DC ---
DISCHARGE ORDERS DISCHARGE INFORMATION: DISCHARGE DATE: Jan 23, 2021 FINAL DIAGNOSIS Problems Medical Problems: (1) BARBARA (acute kidney injury) Status: Acute (2) Delirium Status: Acute CONDITION ON DISCHARGE: Stable CODE STATUS: Code Status: Full FPC: SNF STAY <30 DAYS: Yes HOSPICE: HOSPICE: No HOSPICE EVAL & TREAT: No LTAC: ADMIT TO LTAC: No POST DISCHARGE ORDERS: ACTIVITY ORDERS: Activity as tolerated, Bedrest today WEIGHT BEARING STATUS: As tolerated BATHING ORDERS: Shower-keep dressing dry DIET AFTER DISCHARGE: Regular WOUND/INCISION CARE: Keep wound/cast CDI CHECKS AFTER DISCHARGE: CHECKS AFTER DISCHARGE: Check blood press - daily, Check your Temp as needed, Weigh Yourself Daily TREATMENT/EQUIPMENT ORDERS: ADAPTIVE EQUIPMENT NEEDED: None RESPIRATORY EQUIPMENT NEEDED: Oxygen Physical Therapy For: Evalulation/Treatment Occupational Therapy For: Evaluation/Treatment DISCHARGE MEDICATIONS: Home Meds Active Scripts Ipratropium/Albuterol Sulfate (DUONEB 0.5-3(2.5) MG/3 ML) 3 Ml Ampul.neb, 3 ML NEB RTQID for fractured ribs for 30 Days, #120 EACH Prov:MICHELA HERNANDES MD 12/26/20 Hydrocodone/Acetaminophen (Hydrocodone-Acetamin 5-325 mg) 1 Each Tablet, 1 EACH PO Q6HRS PRN for PAIN, #12 TAB Prov:NELLY SPENCER DO 12/14/20 Reported Medications Irbesartan (IRBESARTAN) 150 Mg Tablet, 150 MG PO DAILY for HTN 09/28/19 Oxybutynin Chloride (OXYBUTYNIN CHLORIDE ER) 10 Mg Tab.er.24, 10 MG PO DAILY for overactive bladder 09/28/19 Discontinued Reported Medications Sulfamethoxazole/Trimethoprim (BACTRIM DS TABLET) 1 Each Tablet, 1 TAB PO BID for antibiotic for 10 Days, #20 TAB 0 Refills 01/16/21 Clindamycin Hcl (CLINDAMYCIN HCL) 150 Mg Capsule, 1 CAP PO QID for antibiotic, #28 CAP 01/16/21 Discontinued Scripts Furosemide (FUROSEMIDE) 40 Mg Tablet, 40 MG PO BID94 for edema for 30 Days, #60 TAB Prov:MICHELA HERNANDES MD 10/02/19 MICHELA HERNANDES MD Jan 23, 2021 16:50
[2021-01-23] MEDS: FLU VACC QUAD 21-22 (6MOS+) PF 0.5 ML SYRINGE. VAX IM ONE (17:41)
--- NOTE | 2021-01-23 18:30 | NUR ---
Pt discharged to [facility] by [facility]. Report called to Jeannie FULLER.
--- NOTE | 2021-01-24 08:44 | DS ---
DATE OF DISCHARGE: 01/23/2021 PRIMARY DIAGNOSIS: Delirium. ADDITIONAL DIAGNOSES: 1. Urinary tract infection. 2. Morbid obesity. 3. Acute kidney injury, resolved during the stay. 4. Deficits in self-care. 5. . CHIEF COMPLAINT AND HISTORY OF PRESENT ILLNESS: This 65-year-old female presented to the emergency room with weakness, essentially no p.o. intake over the last several days. She was having hallucinations and delirium with urinary frequency. It was felt to probably have a probable urinary tract infection, given a dose of Rocephin. UA that was requested at that time was never done and was never done on the floor and after 2 days of antibiotics, she skipped it. I have decided, it was not worth obtaining any further. SUMMARY OF STAY: The patient was admitted, hydrated. Her acute kidney injury resolved. Her hallucinations and delirium, resolved. She was still quite weak, having massive problems with the self-care as well as transfers, ambulation, etc. and was felt to need [facility]. She completed a course of IV Rocephin and was back to her baseline and sent to [facility] on the day of discharge. DISPOSITION: The patient is discharged to [facility]. Please see orders there regarding diet, medication, activity, etc. We will continue to follow her there. [place]/VINOD DR: Annmarie TID: [id number]
== END 2021-01-23 18:30 | DRG 871 ==
LOC: ER 08:49 → 5 SOUTH 11:49
PROVIDERS: ADMIT Family Medicine; ATTEND Family Medicine
DX: A41.9 Sepsis, unspecified organism (principal); N17.0 Acute kidney failure with tubular necrosis; G93.41 Metabolic encephalopathy; N39.0 Urinary tract infection, site not specified; R17 Unspecified jaundice; Z68.44 Body mass index [BMI] 60.0-69.9, adult; E86.0 Dehydration; I11.0 Hypertensive heart disease with heart failure; I27.29 Other secondary pulmonary hypertension; I27.81 Cor pulmonale (chronic); I50.9 Heart failure, unspecified; K08.89 Other specified disorders of teeth and supporting structures; N32.81 Overactive bladder; Z72.820 Sleep deprivation; Z90.49 Acquired absence of other specified parts of digestive tract; E66.01 Morbid (severe) obesity due to excess calories; G47.33 Obstructive sleep apnea (adult) (pediatric); M19.90 Unspecified osteoarthritis, unspecified site; R74.01 Elevation of levels of liver transaminase levels; D72.829 Elevated white blood cell count, unspecified
CPT/HCPCS: 36415; 70450; 71045; 72125; 76770; 80048; 80053; 83605; 84484; 85025; 87426; 90471; 90686; 94640; 94760; 96374; J0696; J7030; J7040; U0003; U0005; 97110-GP; 97165-GO; 97530-GO; 97530-GP; 97535-GO; 99285-25; G0378